=== PATIENT | male | born 1990 | race Caucasian/White ===

== ENCOUNTER 2017-07-14 17:56 | Inpatient (IN) | payer MEDICAID ==
[~2017-07-14] VITALS: Ht 167.6 cm; Wt 70.9 kg
[~2017-07-14 17:56] MED LIST: BISA10R RECTAL; CIPR500T2 PO
[2017-07-14 18:09] VITALS: BP 114/52; PULSE 131; RESP 18; TEMP 102.8; O2SAT 96
[2017-07-14 18:45] VITALS: BP 128/57; PULSE 115; RESP 15; O2SAT 98
[2017-07-14] MEDS ORDERED: SODIUM CHLOR 0.9% 1000 ML INJ 800 ML IV ONE (18:54)
[2017-07-14] MEDS ORDERED: SODIUM CHLOR 0.9% 1000 ML INJ 1,000 ML IV ONE ×2 (18:54→23:30)
[2017-07-14 18:59] LABS: BASOPHIL % 0.2 % (0.0-2.0); EOSINOPHIL % 0.1 % (0.0-4.0); HEMATOCRIT 40.6 % (39.0-51.0); HEMOGLOBIN 14.1 GM/DL (13.0-17.0); LYMPH % 10.3 % (9.0-44.0); LYMPHOCYTE # 1.2 TH/MM3 (1.0-4.8); MEAN CORPUSCULAR HEMOGLOBIN 31.2 PG (27.0-34.0); MEAN CORPUSCULAR HGB CONC 34.7 % (32.0-36.0); MEAN PLATELET VOLUME 8.2 FL (7.0-11.0); MONO % 18.2 % (0.0-8.0); NEUT % 71.2 % (16.0-70.0); PLATELET COUNT 199 TH/MM3 (150-450); RED BLOOD COUNT 4.51 MIL/MM3 (4.50-5.90); RED CELL DISTRIBUTION WIDTH 12.9 % (11.6-17.2); WHITE BLOOD COUNT 11.2 TH/MM3 (4.0-11.0)
[2017-07-14] MEDS ORDERED: ACETAMINOPHEN 325 MG TAB PO ONE (19:00)
--- NOTE | 2017-07-14 19:15 | PD ---
HPI Chief Complaint: Fever Time Seen by Provider: 18:52 Travel History International Travel<30 days: No Contact w/Intl Traveler<30days: No Traveled to known affect area: No History of Present Illness HPI 27-year-old male with PMH of paraplegia secondary to spinal cord injury in early presents to the ED for evaluation of 2 day history of fevers, cloudy urine and headache. Gradual onset. Patient states that he self catheters at home. Endorses "normal" volume of urine output. He denies hematuria. He denies cold or flu symptoms, shortness of breath. Last bowel movement, nonbloody, well-formed today. He states his symptoms are similar to previous episodes of UTI. He states he was last on antibiotics approximately 8 months ago. PFSH Past Medical History Cancer: No Cardiovascular Problems: No Endocrine: No Genitourinary: Yes (hx of uti) Immune Disorder: No Musculoskeletal: Yes (SPINAL CORD INJURY) Psychiatric: No Reproductive: No Respiratory: No Past Surgical History Other Surgery: Yes (BACK SURGEY) Social History Alcohol Use: Yes (OCC) Tobacco Use: No Substance Use: No Allergies-Medications (Allergen,Severity, Reaction): Coded Allergies: No Known Allergies (Verified , 12/12/15) Reported Meds & Prescriptions Reported Meds & Active Scripts Active Bactrim DS (Sulfamethoxazole-Trimethoprim) 800-160 Mg Tab 1 Tab PO BID Ciprofloxacin (Ciprofloxacin HCl) 500 Mg Tab 500 Mg PO BID Bisac-Evac Supp (Bisacodyl) 10 Mg Supp 10 Mg RECTAL EVERY OTHER DAY Review of Systems Except as stated in HPI: all other systems reviewed are Neg Physical Exam Narrative GENERAL: Well-nourished, well-developed male in no acute distress. SKIN: Focused skin assessment warm/dry. HEAD: Normocephalic. EYES: No scleral icterus. No injection or drainage. NECK: Supple, trachea midline. No JVD or lymphadenopathy. CARDIOVASCULAR: Regular rate and rhythm without murmurs, gallops, or rubs. RESPIRATORY: Breath sounds clear and equal bilaterally. No accessory muscle use. GASTROINTESTINAL: Abdomen soft, non-tender, nondistended. Active bowel sounds. MUSCULOSKELETAL: No cyanosis, or edema. Paraplegia, muscle wasting in the lower extremities. BACK: Nontender without obvious deformity. No CVA tenderness. Data Data Last Documented VS Vital Signs Date Time Temp Pulse Resp B/P (MAP) Pulse Ox O2 Delivery O2 Flow Rate FiO2 07/14/17 21:26 99.0 07/14/17 18:45 115 16 98 Room Air Orders Orders Sepsis Workup Initiated (07/14/17 ) Complete Blood Count With Diff (07/14/17 18:11) Comprehensive Metabolic Panel (07/14/17 18:11) Urinalysis - C+S If Indicated (07/14/17 18:11) Lactic Acid Sepsis Protocol (07/14/17 18:11) Blood Culture (07/14/17 18:11) Iv Access Insert/Monitor (07/14/17 18:11) Oxygen Administration (07/14/17 18:11) Oximetry (07/14/17 18:11) Sepsis Workup Initiated (07/14/17 ) Lactic Acid Sepsis Protocol (07/14/17 18:54) Acetaminophen (Tylenol) (07/14/17 19:00) Sodium Chlor 0.9% 1000 Ml Inj (Ns 1000 M (07/14/17 18:54) Sodium Chlor 0.9% 1000 Ml Inj (Ns 1000 M (07/14/17 18:54) Ct Abd/Pel W/O Iv Contrast (07/14/17 19:25) Ceftriaxone Inj (Rocephin Inj) (07/14/17 19:45) Urine Culture (07/14/17 21:45) Ed Discharge Order (07/14/17 22:53) Labs Laboratory Tests Test 07/14/17 18:28 07/14/17 18:30 07/14/17 19:15 07/14/17 21:42 White Blood Count 11.2 TH/MM3 Red Blood Count 4.51 MIL/MM3 Hemoglobin 14.1 GM/DL Hematocrit 40.6 % Mean Corpuscular Volume 90.0 FL Mean Corpuscular Hemoglobin 31.2 PG Mean Corpuscular Hemoglobin Concent 34.7 % Red Cell Distribution Width 12.9 % Platelet Count 199 TH/MM3 Mean Platelet Volume 8.2 FL Neutrophils (%) (Auto) 71.2 % Lymphocytes (%) (Auto) 10.3 % Monocytes (%) (Auto) 18.2 % Eosinophils (%) (Auto) 0.1 % Basophils (%) (Auto) 0.2 % Neutrophils # (Auto) 8.0 TH/MM3 Lymphocytes # (Auto) 1.2 TH/MM3 Monocytes # (Auto) 2.0 TH/MM3 Eosinophils # (Auto) 0.0 TH/MM3 Basophils # (Auto) 0.0 TH/MM3 CBC Comment DIFF FINAL Differential Comment Lactic Acid Level 3.1 mmol/L 2.3 mmol/L 1.0 mmol/L Blood Urea Nitrogen 7 MG/DL Creatinine 0.87 MG/DL Random Glucose 124 MG/DL Total Protein 8.4 GM/DL Albumin 3.4 GM/DL Calcium Level 8.4 MG/DL Alkaline Phosphatase 97 U/L Aspartate Amino Transf (AST/SGOT) 44 U/L Alanine Aminotransferase (ALT/SGPT) 61 U/L Total Bilirubin 1.7 MG/DL Sodium Level 137 MEQ/L Potassium Level 3.6 MEQ/L Chloride Level 101 MEQ/L Carbon Dioxide Level 25.3 MEQ/L Anion Gap 11 MEQ/L Estimat Glomerular Filtration Rate 104 ML/MIN Test 07/14/17 21:45 Urine Color YELLOW Urine Turbidity HAZY Urine pH 6.5 Urine Specific [place] 1.005 Urine Protein NEG mg/dL Urine Glucose (UA) NEG mg/dL Urine Ketones NEG mg/dL Urine Occult Blood SMALL Urine Nitrite NEG Urine Bilirubin NEG Urine Urobilinogen 4.0 MG/DL Urine Leukocyte Esterase LARGE Urine RBC 1 /hpf Urine WBC 104 /hpf Urine Squamous Epithelial Cells <1 /hpf Urine Amorphous Sediment RARE Urine Bacteria FEW /hpf Microscopic Urinalysis Comment CULTURE INDICATED MDM Medical Decision Making Medical Screen Exam Complete: Yes Emergency Medical Condition: Yes Differential Diagnosis UTI versus nephroureterolithiasis versus urosepsis versus other Narrative Course 27-year-old male with PMH of paraplegia secondary to spinal cord injury in early 1999 presents to the ED for evaluation of 2 day history of fevers, cloudy urine and headache. Gradual onset. Patient states that he self catheters at home. He denies hematuria. Endorses "normal" volume of urine. He states his symptoms are similar to previous episodes of UTI. He states he was last on antibiotics approximately 8 months ago. Patient is febrile and tachycardic on presentation. On exam this is a pleasant male in no acute distress. Patient is primarily Upper Sorbian-speaking. All communication was through the [employer] service. Exam is unremarkable. No CVA tenderness. IV was established. Patient was administered 2 L normal saline and 650 of Tylenol. Leukocytosis of 11.2. Hemoglobin 14.1. Initial lactic acid 3.1, 1.0 on recheck. BUN 7, creatinine 0.87. Mild elevation of the bilirubin. UA: Hazy, small occult blood, large leukocyte esterase, 104 WBCs few bacteria. Culture pending. Patient was administered [address] imaging reveals chronic changes of the kidneys and collected system. These are similar to previous CT. I reviewed the patient's record and Dr. Rendon has seen the patient in the past for similar issues. The patient states that he is only catheterizing 3 times a day. I discussed the results of the workup with the patient. Temp normal on recheck. He is provided a 7 day course of Bactrim. He is instructed to self catheter at least every 4 hours, follow with the urologist, return for worsening symptoms. He indicated understanding of the instructions. He is very eager to go home. He is stable and discharged home. Diagnosis Primary Impression: Urinary tract infection Qualified Codes: N30.00 - Acute cystitis without hematuria Referrals: Tanner Silveira MD Additional Instructions: Rest, hydrate. Begin antibiotics today and take them until every pill is gone. Follow-up with the urologist. Return to the ED for worsening symptoms or any urgent or emergent medical condition. Med/Other Pt SpecificInfo: Prescription(s) given Scripts Sulfamethoxazole-Trimethoprim (Bactrim DS) 800-160 Mg Tab 1 TAB PO BID for Infection, #14 TAB 0 Refills Prov: Dominick Garcia MD 07/14/17 Disposition: DISCHARGE HOME Condition: Stable Toyin Cardozo Jul 14, 2017 19:15
[2017-07-14 19:22] LABS: LACTIC ACID SEPSIS PROTOCOL 3.1 mmol/L (0.4-2.0)
[2017-07-14 19:24] LABS: ALBUMIN 3.4 GM/DL (3.4-5.0); AST (GOT) 44 U/L (15-37); BICARBONATE 25.3 MEQ/L (21.0-32.0); BLOOD UREA NITROGEN 7 MG/DL (7-18); CALCIUM 8.4 MG/DL (8.5-10.1); CHLORIDE 101 MEQ/L (98-107); CREATININE 0.87 MG/DL (0.60-1.30); GLOMERULAR FILTRATION RATE 104 ML/MIN (>89); GLUCOSE,RANDOM 124 MG/DL (74-106); SODIUM (NA) 137 MEQ/L (136-145)
[2017-07-14 19:28] LABS: ALKALINE PHOSPHATASE 97 U/L (45-117); ALT (GPT) 61 U/L (12-78); TOTAL BILIRUBIN ADULT 1.7 MG/DL (0.2-1.0); TOTAL PROTEIN 8.4 GM/DL (6.4-8.2)
[2017-07-14] MEDS ORDERED: cefTRIAXone INJ 1,000 MG in SODIUM CHLORIDE 0.9% INJ 100 ML IV ONE (19:45)
[2017-07-14 20:12] LABS: LACTIC ACID SEPSIS PROTOCOL 2.3 mmol/L (0.4-2.0)
--- NOTE | 2017-07-14 21:00 | RADRPT ---
EXAM DATE/TIME: 07/14/2017 20:04 [facility] COMPARISON: CT ABDOMEN & PELVIS W CONTRAST, March 31, 2016, 17:42. INDICATIONS : Dysuria and fever. ORAL CONTRAST: No oral contrast ingested. RADIATION DOSE: 8.70 CTDIvol (mGy) MEDICAL HISTORY : UTI's. neurogenic bladder. parapalegic. SURGICAL HISTORY : IVC Filter placement. Fusion, thoracic. ENCOUNTER: Initial ACUITY: 2 days PAIN SCALE: 0/10 LOCATION: Abdomen. TECHNIQUE: Volumetric scanning of the abdomen and pelvis was performed. Using automated exposure control and ad justment of the mA and/or kV according to patient size, radiation dose was kept as low as reasonably achievable to obtain optimal diagnostic quality images. DICOM format image data is available electro nically for review and comparison. FINDINGS: LOWER LUNGS: The visualized lower lungs are clear. LIVER: Homogeneous density without lesion. There is no dilation of the biliary tree. No calcified gallston es. SPLEEN: Normal size without lesion. PANCREAS: Within normal limits. KIDNEYS: There is moderate to severe dilatation of the renal collecting systems and ureters bilaterally being worse on the left. There is left perinephric stranding. No renal stones are seen. No ureteral stones are seen. ADRENAL GLANDS: Within normal limits. VASCULAR: There is no aortic aneurysm. There is an IVC filter. BOWEL/MESENTERY: The stomach, small bowel, and colon demonstrate no acute abnormality. There is no free intraperitone al air or fluid. ABDOMINAL WALL: Within normal limits. RETROPERITONEUM: There is no lymphadenopathy. BLADDER: The bladder is moderately distended. The bladder wall diffusely thickened.. there appears to be some dilatation of the prostatic urethra. This configuration was present on the prior exam. REPRODUCTIVE: Within normal limits. INGUINAL: There is no lymphadenopathy or hernia. MUSCULOSKELETAL: Within normal limits for patient age. CONCLUSION: 1. Dilatation of the renal collecting systems and ureters bilaterally. The bladder is moderately dist ended. There appears to be distention of the prostatic urethra. Obstruction at this level needs to be suspected. Stenosis, stricture, posterior urethral valves, or neurogenic bladder could all be suspec zaida. Urology consultation would be recommended. 2. Diffuse thickening of the bladder. This may be secondary to chronic overdistention of the urinary bladder with the bladder only be mildly distended at the time of the CT examination. Again, urology c onsultation is recommended. 3. IVC filter. Naeem Kruger MD on July 14, 2017 at 20:52 Board Certified Radiologist. This report was verified electronically.
[2017-07-14 21:26] VITALS: TEMP 99
[2017-07-14 22:25] LABS: AMORPHOUS SEDIMENT, URINE RARE; BACTERIA, URINE FEW /hpf; BILIRUBIN, URINE NEG (NEG); BLOOD, URINE SMALL (NEG); GLUCOSE,URINE NEG (NEG); KETONE, URINE NEG (NEG); NITRITE,URINE NEG (NEG); PH, URINE 6.5 (5.0-8.5); SQUAMOUS EPITHELIAL CELL URINE <1 /hpf (0-5); URINE COLOR YELLOW (YELLW/STRAW); URINE LEUKOCYTE ESTERASE LARGE (NEG)
[2017-07-14] MEDS ORDERED: BACT800T5 PO (22:53)
[2017-07-14 23:24] VITALS: BP 113/69; PULSE 125; RESP 18; O2SAT 97
[2017-07-15] VITALS (12 sets, daily range): BP systolic 100–130; BP diastolic 55–69; PULSE 87–122; RESP 17–23; TEMP 99.1–103.2; O2SAT 97–100
[2017-07-15] MEDS ORDERED: ACETAMINOPHEN 325 MG TAB PO ONE (00:30)
[2017-07-15] MEDS ORDERED: NALOXONE HCL 0.4 MG/ML AMP IV PUSH PRN (04:30)
[2017-07-15] MEDS ORDERED: SODIUM CHLORIDE 0.9% FLUSH 10 ML FLUSH IV FLUSH PRN (04:30)
[2017-07-15 04:43] LABS: HEMATOCRIT 37.9 % (39.0-51.0); HEMOGLOBIN 13.6 GM/DL (13.0-17.0); MEAN CELL VOLUME 90.8 FL (80.0-100.0); MEAN CORPUSCULAR HEMOGLOBIN 32.7 PG (27.0-34.0); MEAN PLATELET VOLUME 8.2 FL (7.0-11.0); PLATELET COUNT 202 TH/MM3 (150-450); RED BLOOD COUNT 4.18 MIL/MM3 (4.50-5.90); RED CELL DISTRIBUTION WIDTH 12.9 % (11.6-17.2); WHITE BLOOD COUNT 8.9 TH/MM3 (4.0-11.0)
[2017-07-15 05:15] LABS: BANDS 14 % (0-6); LYMPHOCYTES 19 % (9-44); METAMYELOCYTES 1 % (0-1); MONOCYTES 13 % (0-8); NEUTROPHIL # MANUAL DIFF 6.1 TH/MM3 (1.8-7.7); POLYS (SEG NEUTROPHILS) 53 % (16-70)
[2017-07-15 05:16] LABS: TOXIC VACUOLATION PRESENT (NONE SEEN)
[2017-07-15] MEDS: ONDANSETRON HCL 4 MG/2 ML VIAL IVP PRN ×2 (05:35→16:36)
[2017-07-15] MEDS: ACETAMINOPHEN 325 MG TAB PO PRN ×2 (05:36→16:33)
[2017-07-15] MEDS: HEPARIN SODIUM - SQ 10,000 UNITS/ML VIAL SQ SCH ×3 (05:37→20:08)
[2017-07-15] MEDS: SODIUM CHLOR 0.9% 1000 ML INJ 1,000 ML IV SCH ×2 (05:37→14:29)
[2017-07-15] MEDS: SODIUM CHLORIDE 0.9% FLUSH 10 ML FLUSH IV FLUSH SCH ×2 (08:07→20:07)
--- NOTE | 2017-07-15 09:45 | HHI.HP ---
[facility] Admission Diagnosis uti fever tachycardia Diagnoses: Chief Complaint: Fever Travel History International Travel<30 Days: No Contact w/Intl Traveler <30 Da: No Traveled to Known Affected Are: No Sepsis Criteria SIRS Criteria (2 or more): Temp > 100.9 or < 96.8, WBC > 10019, < 4000 or > 10 % bands Sepsis Criteria (SIRS+source): Infect source susp/known Severe Sepsis (+one): Lactate >2 Criteria Outcome: Meets severe sepsis criteria History of Present Illness This is a 27-year-old male with a history of paraplegia and neurogenic bladder dysfunction secondary to thoracic spinal cord injury. He presents to the emergency department complaining of intermittent fever, chills and cloudy urine for the past 2 days. He also reports of nausea, vomiting 1 and headache with fever in the emergency department. At this time, he has no complaints. Patient reports that he has been doing self catheterization. Last bout of UTI was 8 months ago. All other systems reviewed negative Review of Systems Except as stated in HPI: all other systems reviewed are Neg Past Family Social History Past Medical History As previously mentioned Past Surgical History Back surgery from a fall Reported Medications Non- Allergies: Coded Allergies: No Known Allergies (Verified , 12/12/15) Family History Heart disease Social History Occasional alcohol use. Does not smoke or use illicit drugs. Lives with his girlfriend Physical Exam Vital Signs Vital Signs Date Time Temp Pulse Resp B/P (MAP) Pulse Ox O2 Delivery O2 Flow Rate FiO2 07/15/17 08:04 99.8 98 18 120/56 (77) 99 07/15/17 05:38 103.1 122 20 115/59 (77) 99 Room Air 07/15/17 04:35 102.3 114 18 130/61 (84) 97 07/15/17 02:37 100.6 07/15/17 00:20 103.2 07/14/17 23:24 125 18 113/69 (84) 97 Room Air 07/14/17 21:26 99.0 07/14/17 18:45 115 16 98 Room Air 07/14/17 18:45 115 15 128/57 (80) 98 Room Air 07/14/17 18:09 102.8 131 18 114/52 (72) 96 Physical Exam GENERAL: This is a well-nourished, well-developed patient, in no apparent distress. SKIN: No rashes, ecchymoses or lesions. Cool and dry. HEAD: Atraumatic. Normocephalic. No temporal or scalp tenderness. EYES: Pupils equal round and reactive. Extraocular motions intact. No scleral icterus. No injection or drainage. ENT: Nose without bleeding, purulent drainage or septal hematoma. Throat without erythema, tonsillar hypertrophy or exudate. Uvula midline. Airway patent. NECK: Trachea midline. No JVD or lymphadenopathy. Supple, nontender, no meningeal signs. CARDIOVASCULAR: Regular rate and rhythm without murmurs, gallops, or rubs. RESPIRATORY: Clear to auscultation. Breath sounds equal bilaterally. No wheezes , rales, or rhonchi. GASTROINTESTINAL: Abdomen soft, non-tender, nondistended. No hepato-splenomegaly , or palpable masses. No guarding. MUSCULOSKELETAL: Extremities without clubbing, cyanosis, or edema. Paraplegic with no sensation from the chest down and muscle wasting in the lower extremities NEUROLOGICAL: Awake and alert. Cranial nerves II through XII intact. Normal speech. Laboratory Laboratory Tests Test 07/14/17 18:28 07/14/17 18:30 07/14/17 19:15 07/14/17 21:42 White Blood Count 11.2 Red Blood Count 4.51 Hemoglobin 14.1 Hematocrit 40.6 Mean Corpuscular Volume 90.0 Mean Corpuscular Hemoglobin 31.2 Mean Corpuscular Hemoglobin Concent 34.7 Red Cell Distribution Width 12.9 Platelet Count 199 Mean Platelet Volume 8.2 Neutrophils (%) (Auto) 71.2 Lymphocytes (%) (Auto) 10.3 Monocytes (%) (Auto) 18.2 Eosinophils (%) (Auto) 0.1 Basophils (%) (Auto) 0.2 Neutrophils # (Auto) 8.0 Lymphocytes # (Auto) 1.2 Monocytes # (Auto) 2.0 Eosinophils # (Auto) 0.0 Basophils # (Auto) 0.0 CBC Comment DIFF FINAL Differential Comment Lactic Acid Level 3.1 2.3 1.0 Blood Urea Nitrogen 7 Creatinine 0.87 Random Glucose 124 Total Protein 8.4 Albumin 3.4 Calcium Level 8.4 Alkaline Phosphatase 97 Aspartate Amino Transf (AST/SGOT) 44 Alanine Aminotransferase (ALT/SGPT) 61 Total Bilirubin 1.7 Sodium Level 137 Potassium Level 3.6 Chloride Level 101 Carbon Dioxide Level 25.3 Anion Gap 11 Estimat Glomerular Filtration Rate 104 Test 07/14/17 21:45 07/15/17 04:20 Urine Color YELLOW Urine Turbidity HAZY Urine pH 6.5 Urine Specific [place] 1.005 Urine Protein NEG Urine Glucose (UA) NEG Urine Ketones NEG Urine Occult Blood SMALL Urine Nitrite NEG Urine Bilirubin NEG Urine Urobilinogen 4.0 Urine Leukocyte Esterase LARGE Urine RBC 1 Urine WBC 104 Urine Squamous Epithelial Cells <1 Urine Amorphous Sediment RARE Urine Bacteria FEW Microscopic Urinalysis Comment CULTURE INDICATED White Blood Count 8.9 Red Blood Count 4.18 Hemoglobin 13.6 Hematocrit 37.9 Mean Corpuscular Volume 90.8 Mean Corpuscular Hemoglobin 32.7 Mean Corpuscular Hemoglobin Concent 36.0 Red Cell Distribution Width 12.9 Platelet Count 202 Mean Platelet Volume 8.2 CBC Comment AUTO DIFF Differential Total Cells Counted 100 Neutrophils % (Manual) 53 Band Neutrophils % 14 Lymphocytes % 19 Monocytes % 13 Neutrophils # (Manual) 6.1 Metamyelocytes 1 Differential Comment FINAL DIFF MANUAL Toxic Vacuolation PRESENT Platelet Estimate NORMAL Platelet Morphology Comment NORMAL Red Cell Morphology Comment NORMAL Date/Time Source Procedure Growth Status 07/15/17 04:39 Blood Peripheral Aerobic Blood Culture Pending Received 07/15/17 04:39 Blood Peripheral Anaerobic Blood Culture Pending Received 07/14/17 21:45 Urine Clean Catch Urine Culture Pending Received Result Diagram: 07/15/17 0420 07/14/17 1830 Imaging Last Impressions Abdomen/Pelvis CT 07/14/[id number] Signed Impressions: Service Date/Time: Friday, July 14, 2017 20:04 - CONCLUSION: 1. Dilatation of the renal collecting systems and ureters bilaterally. The bladder is moderately distended. There appears to be distention of the prostatic urethra. Obstruction at this level needs to be suspected. Stenosis, stricture, posterior urethral valves, or neurogenic bladder could all be suspected. Urology consultation would be recommended. 2. Diffuse thickening of the bladder. This may be secondary to chronic overdistention of the urinary bladder with the bladder only be mildly distended at the time of the CT examination. Again, urology consultation is recommended. 3. IVC filter. Naeem Kruger MD Caprini VTE Risk Assessment Caprini VTE Risk Assessment: Mod/High Risk (score >= 2) Caprini Risk Assessment Model Point Value = 1 Point Value = 2 Point Value = 3 Point Value = 5 Age 41-60 Minor surgery BMI > 25 kg/m2 Swollen legs Varicose veins or History of unexplained or recurrent spontaneous Oral contraceptives or hormone replacement Sepsis (< 1 month) Serious lung disease, including pneumonia (< 1 month) Abnormal pulmonary function Acute myocardial infarction Congestive heart failure (< 1 month) History of inflammatory bowel disease Medical patient at bed rest Age 61-74 Arthroscopic surgery Major open surgery (> 45 min) Laparoscopic surgery (> 45 min) Malignancy Confined to bed (> 72 hours) Immobilizing plaster cast Central venous access Age >= 75 History of VTE Family history of VTE Factor V Leiden Prothrombin [id number] Lupus anticoagulant Anticardiolipin antibodies Elevated serum homocysteine Heparin-induced thrombocytopenia Other congenital or acquired thrombophilia Stroke (< 1 month) Elective arthroplasty Hip, pelvis, or leg fracture Acute spinal cord injury (< 1 month) Prophylaxis Regimen Total Risk Factor Score Risk Level Prophylaxis Regimen 0-1 Low Early ambulation 2 Moderate Order ONE of the following: *Sequential Compression Device (SCD) *Heparin 5000 units SQ BID 3-4 Higher Order ONE of the following medications: *Heparin 5000 units SQ TID *Enoxaparin/Lovenox 40 mg SQ daily (WT < 150 kg, CrCl > 30 mL/min) *Enoxaparin/Lovenox 30 mg SQ daily (WT < 150 kg, CrCl > 10-29 mL/min) *Enoxaparin/Lovenox 30 mg SQ BID (WT < 150 kg, CrCl > 30 mL/min) AND/OR *Sequential Compression Device (SCD) 5 or more Highest Order ONE of the following medications: *Heparin 5000 units SQ TID (Preferred with Epidurals) *Enoxaparin/Lovenox 40 mg SQ daily (WT < 150 kg, CrCl > 30 mL/min) *Enoxaparin/Lovenox 30 mg SQ daily (WT < 150 kg, CrCl > 10-29 mL/min) *Enoxaparin/Lovenox 30 mg SQ BID (WT < 150 kg, CrCl > 30 mL/min) AND *Sequential Compression Device (SCD) Assessment and Plan Problem List: (1) Urinary tract infection ICD Code: N39.0 - Urinary tract infection, site not specified Status: Acute Assessment and Plan This is a 27-year-old male with a history of paraplegia and neurogenic bladder dysfunction secondary to thoracic spinal cord injury. He presents to the emergency department complaining of intermittent fever, chills and cloudy urine for the past 2 days. He also reports of nausea, vomiting 1 and headache with fever in the emergency department. Complicated urinary tract infection in a patient with a history of neurogenic bladder dysfunction 2/2 SCI. He meets criteria for severe sepsis. Continue IV hydration, IV Rocephin and follow-up cultures. Patient with abnormal abdominal and pelvic CT showing dilatation of the renal collecting systems and ureters bilaterally with moderately distended urinary bladder and wall thickening. Possible distention of the prostatic urethra. Will insert Jones catheter and consult urology for further evaluation Mild AST elevation likely secondary to sepsis. Will monitor DVT prophylaxis with SCD, subcu heparin. Patient has an IVC filter Discussed Condition With Patient and girlfriend Problem Qualifiers (1) Urinary tract infection: Qualified Codes: N30.00 - Acute cystitis without hematuria Telly Foy MD Jul 15, 2017 09:45
--- NOTE | 2017-07-15 14:33 | MB ---
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 He has a neurogenic bladder and performs clean intermittent catheterization q. 8 hours. Over the last few days he has been complaining of intermittent fever with chills and cloudy urine. He also notes some nausea and vomiting with headache, fever. The patient states that he was admitted approximately 1 year ago with similar symptoms of a UTI. A CT scan was performed in the Emergency Room, which demonstrated dilatation of the renal collecting system and ureters bilaterally with a moderately distended bladder. A Jones catheter was placed by the nurse in the emergency room and she received 500 ccs upon placement. He also states that he has incontinence in between catheterizations. He denies any history of stones. PAST MEDICAL HISTORY: His medical history is noted for spinal cord injury with a neurogenic bladder. PAST SURGICAL HISTORY: Noted for back surgery after his initial injury. MEDICATIONS: He is not taking any medications. ALLERGIES: NO DRUG ALLERGIES. FAMILY HISTORY: Negative for heart disease. SOCIAL HISTORY: Occasional alcohol, but does not smoke or use any illicit drugs. He currently lives with his girlfriend. REVIEW OF SYSTEMS: Denies chest pain, shortness of breath. Denies abdominal pain. Notes fever, chills, cloudy urine is noted. Notes gait limitations due to spinal cord injury. Denies bleeding disorders. Denies psychiatric problems. Remaining review of systems were reviewed and were negative. PHYSICAL EXAMINATION: VITAL SIGNS: On presentation temperature 99.8, heart rate is 93, respiratory rate 23, 111/57, 98% on room air. GENERAL: Well-developed, well-nourished, 27-year-old male in no acute distress. HEENT: Normocephalic, atraumatic. Pupils equal, round, reactive to light. Extraocular movements intact. NECK: Supple. HEART: Regular rate and rhythm. LUNGS: Clear. ABDOMEN: Soft, nontender, nondistended. : Normal phallus. Testes are descended. Jones catheter in place. Urine is presently clear. EXTREMITIES: Show no evidence of cyanosis, clubbing, or edema. NEUROLOGIC: Cranial nerves 2-12 are intact. SKIN: There are no lesions identified. LABORATORY DATA: White count 8.9, hemoglobin 13.6, hematocrit 37.9, platelet count of 202. Sodium 137, potassium 3.6, chloride 101, CO2 25.3, BUN is 7, creatinine 0.87, glucose of 124. Urinalysis: Large leukocyte esterase, 104 white cells, 1 red cell. Again, imaging studies shows some dilatation of the renal collecting system and ureters bilaterally. The bladder is moderately distended. There appeared to be some distention of the prostatic urethra. Bladder wall thickening was also noted. ASSESSMENT AND PLAN: A 27-year-old male with a history of a neurogenic bladder after a fall sustaining back injury. The patient is currently on clean intermittent catheterization q. 8 hours at home and now presents with sepsis. Recommend maintain Jones catheter with drainage for now. Continue IV fluids and IV antibiotics. Once infection is cleared, will then resume clean intermittent catheterization, but would increase frequency to q. 6 hours. The patient will then followup in the office to undergo possible urodynamic study and cystoscopy at that time. Thank you for the consult and allowing me to participate in the care of this patient. DO MADELIN Santos/ANTHONY , 02:09 PM , 02:32 PM
--- NOTE | 2017-07-15 14:50 | EKG ---
Date Performed: 07/15/2017 Time Performed: 04:51:48 PTAGE: 27 years EKG: Normal Sinus rhythm Minor nonspecific t wave abnormality new since the prior tracing PREVIOUS TRACING : 01/06/2011 13.33 DOCTOR: Michael Covarrubias Interpretating Date/Time 07/15/2017 14:49:00
--- NOTE | 2017-07-15 15:57 | HHI.DCPOC ---
Discharge Care Plan Diagnosis: (1) Urinary tract infection Your Health Problems Are: Difficulty with ADL Exercise Tolerance Goals to Promote Your Health * To prevent worsening of your condition and complications * To maintain your health at the optimal level Directions to Meet Your Goals Take your medications as prescribed Follow your dietary instruction Follow activity as directed Keep your appointments as scheduled Take your immunizations and boosters as scheduled If your symptoms worsen call your PCP, if no PCP go to Urgent Care Center or Emergency Room Smoking is Dangerous to Your Health. Avoid second hand smoke Call the 24-hour hour crisis hotline for domestic abuse at Telly Foy MD Jul 15, 2017 15:57
[2017-07-15] MEDS: cefTRIAXone INJ 1,000 MG in SODIUM CHLORIDE 0.9% INJ 100 ML IV SCH (20:07)
[2017-07-16] VITALS (9 sets, daily range): BP systolic 98–117; BP diastolic 50–64; PULSE 71–98; RESP 18; TEMP 97.8–101.8; O2SAT 98–100
[2017-07-16] MEDS: ACETAMINOPHEN 325 MG TAB PO PRN (02:35)
[2017-07-16] MEDS: HEPARIN SODIUM - SQ 10,000 UNITS/ML VIAL SQ SCH ×3 (06:00→22:06)
[2017-07-16] MEDS: SODIUM CHLORIDE 0.9% FLUSH 10 ML FLUSH IV FLUSH SCH ×2 (09:27→21:00)
[2017-07-16] MEDS: ONDANSETRON HCL 4 MG/2 ML VIAL IVP PRN (09:29)
--- NOTE | 2017-07-16 14:32 | HHI.PR ---
Subjective Remarks Follow-up UTI. T-max of 101 at 3:00 in the morning. Patient has no complaints he is doing okay agrees to stay another day discussed with and nursing Objective Vitals Vital Signs Date Time Temp Pulse Resp B/P (MAP) Pulse Ox O2 Delivery O2 Flow Rate FiO2 07/16/17 12:00 98.2 98 18 109/52 (71) 98 07/16/17 08:00 98.3 92 18 115/55 (75) 98 07/16/17 08:00 90 07/16/17 07:36 Room Air 07/16/17 04:00 98.1 71 18 98/54 (69) 99 07/16/17 04:00 Room Air 07/16/17 03:39 93 07/16/17 02:35 101.8 07/16/17 00:00 Room Air 07/16/17 00:00 98.3 98 18 103/63 (76) 100 07/15/17 23:46 87 07/15/17 20:00 Room Air 07/15/17 20:00 99.6 101 18 100/55 (70) 98 07/15/17 19:42 106 07/15/17 16:09 102.8 99 17 119/69 (86) 98 07/15/17 16:00 100 I/O 07/15/17 07/15/17 07/15/17 07/16/17 07/16/17 07/16/17 06:59 14:59 22:59 06:59 14:59 22:59 Intake Total 2900 ml 1000 ml 820 ml 1754 ml Output Total 2150 ml 2000 ml 450 ml Balance 2900 ml 1000 ml -1330 ml -246 ml -450 ml Intake Oral 720 ml 880 ml IV Total 2900 ml 1000 ml 100 ml 874 ml Output Urine Total 2150 ml 2000 ml 450 ml # Bowel Movements 0 0 Result Diagram: 07/15/17 0420 07/14/17 183 Imaging Last Impressions Abdomen/Pelvis CT 07/14/171924 Signed Impressions: Service Date/Time: Friday, July 14, 2017 20:04 - CONCLUSION: 1. Dilatation of the renal collecting systems and ureters bilaterally. The bladder is moderately distended. There appears to be distention of the prostatic urethra. Obstruction at this level needs to be suspected. Stenosis, stricture, posterior urethral valves, or neurogenic bladder could all be suspected. Urology consultation would be recommended. 2. Diffuse thickening of the bladder. This may be secondary to chronic overdistention of the urinary bladder with the bladder only be mildly distended at the time of the CT examination. Again, urology consultation is recommended. 3. IVC filter. Naeem Kruger MD Objective Remarks GENERAL: This is a well-nourished, well-developed patient, in no apparent distress. SKIN: No rashes, ecchymoses or lesions. Cool and dry. CARDIOVASCULAR: Regular rate and rhythm without murmurs, gallops, or rubs. RESPIRATORY: Clear to auscultation. Breath sounds equal bilaterally. No wheezes , rales, or rhonchi. GASTROINTESTINAL: Abdomen soft, non-tender, nondistended. No guarding. MUSCULOSKELETAL: Extremities without clubbing, cyanosis, or edema. Paraplegic with no sensation from the chest down and muscle wasting in the lower extremities NEUROLOGICAL: Awake and alert. Cranial nerves II through XII intact. Normal speech. Procedures none A/P Problem List: (1) Urinary tract infection ICD Code: N39.0 - Urinary tract infection, site not specified Status: Acute Assessment and Plan This is a 27-year-old male with a history of paraplegia and neurogenic bladder dysfunction secondary to thoracic spinal cord injury. He presents to the emergency department complaining of intermittent fever, chills and cloudy urine for the past 2 days. He also reports of nausea, vomiting 1 and headache with fever in the emergency department. Complicated urinary tract infection in a patient with a history of neurogenic bladder dysfunction 2/2 SCI. He meets criteria for severe sepsis. Continues to be febrile. Continue IV hydration, IV Rocephin and follow-up cultures. Patient with abnormal abdominal and pelvic CT showing dilatation of the renal collecting systems and ureters bilaterally with moderately distended urinary bladder and wall thickening. Possible distention of the prostatic urethra. Continue Jones catheter and consulted urology discussed with Dr. Mott outpatient follow-up for urodynamic studies Mild AST elevation likely secondary to sepsis. Will monitor DVT prophylaxis with SCD, subcu heparin. Patient has an IVC filter Discharge Planning Possible discharge in the morning Problem Qualifiers (1) Urinary tract infection: Qualified Codes: N30.00 - Acute cystitis without hematuria Telly Foy MD Jul 16, 2017 14:32
[2017-07-16] MEDS ORDERED: CEFU1TAB18 PO (17:56)
[2017-07-16] MEDS: cefTRIAXone INJ 1,000 MG in SODIUM CHLORIDE 0.9% INJ 100 ML IV SCH (22:06)
[2017-07-17] VITALS: BP 105/57; PULSE 81; RESP 18; TEMP 98.1; O2SAT 97
[2017-07-17 04:00] VITALS: PULSE 66
[2017-07-17] MEDS: HEPARIN SODIUM - SQ 10,000 UNITS/ML VIAL SQ SCH (05:57)
[2017-07-17 07:53] VITALS: PULSE 71
[2017-07-17 08:00] VITALS: BP 101/58; PULSE 76; RESP 19; TEMP 98; O2SAT 99
[2017-07-17] MEDS: SODIUM CHLORIDE 0.9% FLUSH 10 ML FLUSH IV FLUSH SCH (09:44)
[2017-07-17 12:00] VITALS: BP 118/59; PULSE 77; RESP 19; TEMP 98.1; O2SAT 97
[2017-07-17 12:16] VITALS: PULSE 78
--- NOTE | 2017-07-17 13:30 | HHI.DS ---
Discharge Summary Admission Date Jul 15, 2017 at 04:08 Discharge Date: Jul 17, 2017 Admitting Diagnosis uti fever tachycardia (1) Urinary tract infection ICD Code: N39.0 - Urinary tract infection, site not specified Diagnosis: Principal Status: Acute Procedures none Brief History - From Admission This is a 27-year-old male with a history of paraplegia and neurogenic bladder dysfunction secondary to thoracic spinal cord injury. He presents to the emergency department complaining of intermittent fever, chills and cloudy urine for the past 2 days. He also reports of nausea, vomiting 1 and headache with fever in the emergency department. At this time, he has no complaints. Patient reports that he has been doing self catheterization. Last bout of UTI was 8 months ago. All other systems reviewed negative CBC/BMP: 07/15/17 0420 07/14/17 1830 Significant Findings Laboratory Tests Test 07/14/17 18:28 07/14/17 18:30 07/14/17 19:15 07/14/17 21:42 White Blood Count 11.2 TH/MM3 (4.0-11.0) Neutrophils (%) (Auto) 71.2 % (16.0-70.0) Monocytes (%) (Auto) 18.2 % (0.0-8.0) Neutrophils # (Auto) 8.0 TH/MM3 (1.8-7.7) Monocytes # (Auto) 2.0 TH/MM3 (0-0.9) Lactic Acid Level 3.1 mmol/L (0.4-2.0) 2.3 mmol/L (0.4-2.0) Random Glucose 124 MG/DL (74-106) Total Protein 8.4 GM/DL (6.4-8.2) Calcium Level 8.4 MG/DL (8.5-10.1) Aspartate Amino Transf (AST/SGOT) 44 U/L (15-37) Total Bilirubin 1.7 MG/DL (0.2-1.0) Test 07/14/17 21:45 07/15/17 04:20 Urine Turbidity HAZY (CLEAR) Urine Occult Blood SMALL (NEG) Urine Urobilinogen 4.0 MG/DL (LESS THAN Urine Leukocyte Esterase LARGE (NEG) Urine WBC 104 /hpf (0-5) Urine Bacteria FEW /hpf (NONE) Red Blood Count 4.18 MIL/MM3 (4.50-5.90) Hematocrit 37.9 % (39.0-51.0) Band Neutrophils % 14 % (0-6) Monocytes % 13 % (0-8) Toxic Vacuolation PRESENT (NONE SEEN) Imaging Last Impressions Abdomen/Pelvis CT 07/14/171924 Signed Impressions: Service Date/Time: Friday, July 14, 2017 20:04 - CONCLUSION: 1. Dilatation of the renal collecting systems and ureters bilaterally. The bladder is moderately distended. There appears to be distention of the prostatic urethra. Obstruction at this level needs to be suspected. Stenosis, stricture, posterior urethral valves, or neurogenic bladder could all be suspected. Urology consultation would be recommended. 2. Diffuse thickening of the bladder. This may be secondary to chronic overdistention of the urinary bladder with the bladder only be mildly distended at the time of the CT examination. Again, urology consultation is recommended. 3. IVC filter. Naeem Kruger MD PE at Discharge GENERAL: This is a well-nourished, well-developed patient, in no apparent distress. SKIN: No rashes, ecchymoses or lesions. Cool and dry. CARDIOVASCULAR: Regular rate and rhythm without murmurs, gallops, or rubs. RESPIRATORY: Clear to auscultation. Breath sounds equal bilaterally. No wheezes , rales, or rhonchi. GASTROINTESTINAL: Abdomen soft, non-tender, nondistended. No guarding. MUSCULOSKELETAL: Extremities without clubbing, cyanosis, or edema. Paraplegic with no sensation from the chest down and muscle wasting in the lower extremities NEUROLOGICAL: Awake and alert. Cranial nerves II through XII intact. Normal speech. Hospital Course This is a 27-year-old male with a history of paraplegia and neurogenic bladder dysfunction secondary to thoracic spinal cord injury. He presents to the emergency department complaining of intermittent fever, chills and cloudy urine for the past 2 days. He also reports of nausea, vomiting 1 and headache with fever in the emergency department. Complicated urinary tract infection in a patient with a history of neurogenic bladder dysfunction 2/2 SCI. He meets criteria for severe sepsis. Stable with negative cultures. Upper body for over 24 hours. Continue antibiotics switch to Ceftin discontinue IV Rocephin Patient with abnormal abdominal and pelvic CT showing dilatation of the renal collecting systems and ureters bilaterally with moderately distended urinary bladder and wall thickening. Possible distention of the prostatic urethra. Continue Jones catheter and consulted urology discussed with Dr. Mott outpatient follow-up for urodynamic studies Mild AST elevation likely secondary to sepsis. Will monitor DVT prophylaxis with SCD, subcu heparin. Patient has an IVC filter Pt Condition on Discharge: Stable Discharge Disposition: Discharge Home Discharge Time: > 30 minutes Discharge Instructions DIET: Follow Instructions for: As Tolerated, No Restrictions Activities you can perform: Regular-No Restrictions Activities to Avoid: Driving Follow up Referrals: Appointment for Follow Up @ DR. MOTT PCP Follow-up - 1 Week PCP Follow-up @ [facility] - 1 Week with mandatory follow up New Medications: Cefuroxime (Ceftin) 250 Mg Tab 250 MG PO BID for Infection, #22 TAB Telly Foy MD Jul 17, 2017 13:29
== END 2017-07-17 14:30 | disposition home or self-care (01) | DRG 872 ==
LOC: NEPE 17:56 → NEDA 07-15 04:08 → N04A 07-15 12:26
PROVIDERS: ADMIT Internal Medicine; ATTEND Internal Medicine
PROC: 0T9B70Z Drainage of Bladder with Drainage Device, Via Natural or Artificial Opening (ICD-10-PCS; principal; 2017-07-15)
DX: A41.9 Sepsis, unspecified organism (principal); G82.20 Paraplegia, unspecified; N39.0 Urinary tract infection, site not specified; S24.109S Unspecified injury at unspecified level of thoracic spinal cord, sequela; N31.9 Neuromuscular dysfunction of bladder, unspecified; R65.20 Severe sepsis without septic shock
CPT/HCPCS: 74176; 80053; 81001; 83605; 85007; 85025; 85027; 87040; 87086; 93005; 96361; 96365; J0696; J1644; J2405; J7030

== ENCOUNTER 2018-03-11 17:20 | Inpatient (IN) ==
--- NOTE | 2018-03-11 17:46 | ED ---
HPI General Chief Complaint: Fever Stated Complaint: fever Time Seen by Provider: 03/11/18 17:43 Source: patient and family Mode of arrival: ambulatory Limitations: no limitations History of Present Illness HPI Narrative: 27-year-old male patient who is paraplegic presents to the ER today because he has had several days history of headaches, nausea, vomiting, and fevers. He apparently has had similar episodes with his UTIs. He self caths and gets frequent UTIs. Modifying Factors: None Associated Signs & Symptoms: Nausea, vomiting, fevers, headaches Risk Factors: Paraplegic, self caths, frequent UTIs Related Data Home Medications Medication Instructions Recorded Confirmed No Known Home Medications 03/11/18 03/11/18 Previous Rx's Medication Instructions Recorded ciprofloxacin HCl [Cipro] 500 mg PO BID 42 Days #84 tab 03/14/18 Allergies Allergy/AdvReac Type Severity Reaction Status Date / Time No Known Allergies Allergy Verified 03/11/18 17:37 Review of Systems ROS: all other systems reviewed are negative PMFSH History History Provided By: Patient Medical History Medical History Paraplegia (Acute) Family History Family History Other Diabetes mellitus Social History Social History Substance History: No History of Abuse Second Hand Smoke Exposure: No Smoking Status: Never smoker How Often Do You Have a Drink Containing Alcohol: Monthly or less Recent Travel in [facility] within the Last 8 Weeks: No Recent Out of Country Travel within the Last 8 Weeks: No Exam Narrative Exam Narrative: GENERAL: Paraplegic young male patient currently and mild distress. Awake and oriented x3. SKIN: Focused skin assessment warm/dry. HEAD: Atraumatic. Normocephalic. EYES: Pupils equal and round. No scleral icterus. No injection or drainage. ENT: No nasal bleeding or discharge. Mucous membranes pink and moist. NECK: Trachea midline. No JVD. CARDIOVASCULAR: Regular rate and rhythm. No murmur appreciated. RESPIRATORY: No accessory muscle use. Clear to auscultation. Breath sounds equal bilaterally. GASTROINTESTINAL: Abdomen soft, non-tender, nondistended. Hepatic and splenic margins not palpable. MUSCULOSKELETAL: No obvious deformities. No clubbing. No cyanosis. No edema. NEUROLOGICAL: Awake and alert. Paraplegic, lower body paralysis. Normal speech. PSYCHIATRIC: Appropriate mood and affect; insight and judgment normal. Course Initial Documented Vital Signs Temperature 100.1 F H 03/11/18 17:35 Pulse Rate 118 H 03/11/18 17:35 Respiratory Rate 20 03/11/18 17:35 Blood Pressure 114/58 L 03/11/18 17:35 Pulse Oximetry 97 03/11/18 17:35 Last Documented Vital Signs Temperature 98.7 F 03/14/18 12:00 Pulse Rate 72 03/14/18 12:00 Respiratory Rate 18 03/14/18 12:00 Blood Pressure 106/59 L 03/14/18 12:00 Pulse Oximetry 98 03/14/18 12:00 Sign Out Sign Out Data: Patient Sign Out occurred on 03/11/18 at 19:17. Patient's care was discussed, and care was transferred from Carlita Trejo MD to Indu Ahumada. Sign Out Comment: Patient signed out to oncoming physician at 7 PM pending workup and CAT scan, planning to admit considering significant leukocytosis and suspicion of sepsis. Last updated by Carlita Trejo MD at 03/11/18 18:44 Medical Decision Making MDM Narrative Medical decision making narrative: UA indicates UTI and white count in this case underlying sepsis. IV Intermedics have been initiated in the ER. Case was signed out at [address] Ahumada who checked on the CAT scan and admitted the patient. CAT scan is showing some signs of UTI, neurogenic bladder, and prostatitis without signs of other acute intra-abdominal processes. Case was discussed with Dr. Lopez for admission. Medical Screen Exam Complete: Yes Emergency Medical Condition: Yes Differential Diagnosis Differential Diagnosis: UTI versus sepsis versus dehydration versus gastroenteritis Lab Data Result diagrams: 03/13/18 06:07 03/12/18 04:38 Lab Results 03/11/18 03/11/18 03/11/18 Range/Units 18:15 18:15 18:27 WBC 26.3 H (4.0-11.0) th/mm3 RBC 4.64 (4.50-5.90) mil/mm3 Hgb 14.6 (13.0-17.0) gm/dL Hct 42.3 (39.0-51.0) % MCV 91.0 (80.0-100.0) fL MCH 31.5 (27.0-34.0) pg MCHC 34.6 (32.0-36.0) % RDW 13.8 (11.6-17.2) % Plt Count 231 (150-450) th/mm3 MPV 8.2 (7.0-11.0) fL Prelim Diff (Auto) Slide review pending Neut % (Auto) 82.7 H (16.0-70.0) % Lymph % (Auto) 5.6 L (9.0-44.0) % [place] % (Auto) 11.6 H (0.0-8.0) % Eos % (Auto) 0.0 (0.0-4.0) % Baso % (Auto) 0.1 (0.0-2.0) % Neut # (Auto) 21.8 H (1.8-7.7) th/mm3 Lymph # (Auto) 1.5 (1.0-4.8) th/mm3 [place]ard # (Auto) 3.0 H (0.0-0.9) th/mm3 Eos # (Auto) 0.0 (0.0-0.4) th/mm3 Baso # (Auto) 0.0 (0.0-0.2) th/mm3 WBC Differential Manual diff final Seg Neuts % (Manual) 83 H (16-70) % Band Neuts % (Manual) 4 (0-6) % Lymphocytes % (Manual) 4 L (9-44) % Monocytes % (Manual) 5 (0-8) % Basophils % (Manual) (0-2) % Metamyelocytes % (Man) 4 H (0-1) % Abs Neuts (Manual) 23.9 H (1.8-7.7) th/mm3 Differential Comment . Toxic Vacuolation (None) Platelet Estimate Normal (Normal) Platelet Morphology Normal (Normal) RBC Morphology Normal (Normal) Sodium 137 (136-145) meq/L Potassium 3.7 (3.5-5.1) meq/L Chloride 101 (98-107) meq/L Carbon Dioxide 26.1 (21.0-32.0) meq/L Anion Gap 10 (5-15) meq/L BUN 9 (7-18) mg/dL Creatinine 0.84 (0.60-1.30) mg/dL Estimated GFR Greater than 89 (>89) mL/min Random Glucose 111 H (74-106) mg/dL Lactic Acid (0.4-2.0) mmol/L Calcium 8.5 (8.5-10.1) mg/dL Magnesium 1.8 (1.5-2.5) mg/dL Total Bilirubin 2.2 H (0.2-1.0) mg/dL AST 19 (15-37) U/L ALT 26 (12-78) U/L Alkaline Phosphatase 78 (45-117) U/L Total Protein 8.5 H (6.4-8.2) g/dL Albumin 3.7 (3.4-5.0) g/dL Lipase 53 L (73-393) U/L Urine Color Yellow (Yellw/Straw) Urine Clarity Hazy H (Clear) Urine pH 7.0 (5.0-8.5) Ur Specific [place] 1.006 (1.002-1.035) Urine Protein Negative (Neg-Trace) mg/dL Urine Glucose (UA) Negative (Negative) mg/dL Urine Ketones Negative (Negative) mg/dL Urine Occult Blood Moderate H (Negative) Urine Nitrate Negative (Negative) Urine Bilirubin Negative (Negative) Urine Urobilinogen 2.0 H (Less than 2) mg/dL Ur Leukocyte Esterase Large H (Negative) Urine RBC 1 (0-3) /hpf Urine WBC 113 H (0-5) /hpf Ur Squamous Epith Cells 1 (0-5) /hpf Urine Bacteria Occasional H (None) /hpf Micro UA Comment Cath-culture ind Ur Microscopic Review Not Reportable Urine Culture Comments Cath-cult indicated 03/11/18 03/12/18 03/12/18 Range/Units 19:15 04:38 04:38 WBC 21.8 H (4.0-11.0) th/mm3 RBC 4.02 L (4.50-5.90) mil/mm3 Hgb 12.9 L (13.0-17.0) gm/dL Hct 37.7 L (39.0-51.0) % MCV 93.9 (80.0-100.0) fL MCH 32.0 (27.0-34.0) pg MCHC 34.1 (32.0-36.0) % RDW 13.9 (11.6-17.2) % Plt Count 196 (150-450) th/mm3 MPV 8.7 (7.0-11.0) fL Prelim Diff (Auto) Neut % (Auto) 84.2 H (16.0-70.0) % Lymph % (Auto) 6.6 L (9.0-44.0) % Menard % (Auto) 8.9 H (0.0-8.0) % Eos % (Auto) 0.0 (0.0-4.0) % Baso % (Auto) 0.3 (0.0-2.0) % Neut # (Auto) 18.4 H (1.8-7.7) th/mm3 Lymph # (Auto) 1.4 (1.0-4.8) th/mm3 [place]ard # (Auto) 1.9 H (0.0-0.9) th/mm3 Eos # (Auto) 0.0 (0.0-0.4) th/mm3 Baso # (Auto) 0.1 (0.0-0.2) th/mm3 WBC Differential . Seg Neuts % (Manual) (16-70) % Band Neuts % (Manual) (0-6) % Lymphocytes % (Manual) (9-44) % Monocytes % (Manual) (0-8) % Basophils % (Manual) (0-2) % Metamyelocytes % (Man) (0-1) % Abs Neuts (Manual) (1.8-7.7) th/mm3 Differential Comment Auto diff final Toxic Vacuolation (None) Platelet Estimate (Normal) Platelet Morphology (Normal) RBC Morphology (Normal) Sodium 139 (136-145) meq/L Potassium 3.0 L (3.5-5.1) meq/L Chloride 107 (98-107) meq/L Carbon Dioxide 23.7 (21.0-32.0) meq/L Anion Gap 8 (5-15) meq/L BUN 7 (7-18) mg/dL Creatinine 0.66 (0.60-1.30) mg/dL Estimated GFR Greater than 89 (>89) mL/min Random Glucose 114 H (74-106) mg/dL Lactic Acid 1.3 (0.4-2.0) mmol/L Calcium 7.5 L D (8.5-10.1) mg/dL Magnesium (1.5-2.5) mg/dL Total Bilirubin (0.2-1.0) mg/dL AST (15-37) U/L ALT (12-78) U/L Alkaline Phosphatase (45-117) U/L Total Protein (6.4-8.2) g/dL Albumin (3.4-5.0) g/dL Lipase (73-393) U/L Urine Color (Yellw/Straw) Urine Clarity (Clear) Urine pH (5.0-8.5) Ur Specific [place] (1.002-1.035) Urine Protein (Neg-Trace) mg/dL Urine Glucose (UA) (Negative) mg/dL Urine Ketones (Negative) mg/dL Urine Occult Blood (Negative) Urine Nitrate (Negative) Urine Bilirubin (Negative) Urine Urobilinogen (Less than 2) mg/dL Ur Leukocyte Esterase (Negative) Urine RBC (0-3) /hpf Urine WBC (0-5) /hpf Ur Squamous Epith Cells (0-5) /hpf Urine Bacteria (None) /hpf Micro UA Comment Ur Microscopic Review Urine Culture Comments 03/13/18 Range/Units 06:07 WBC 9.9 (4.0-11.0) th/mm3 RBC 4.05 L (4.50-5.90) mil/mm3 Hgb 12.8 L (13.0-17.0) gm/dL Hct 37.8 L (39.0-51.0) % MCV 93.4 (80.0-100.0) fL MCH 31.5 (27.0-34.0) pg MCHC 33.7 (32.0-36.0) % RDW 13.9 (11.6-17.2) % Plt Count 194 (150-450) th/mm3 MPV 8.2 (7.0-11.0) fL Prelim Diff (Auto) Manual diff required Neut % (Auto) (16.0-70.0) % Lymph % (Auto) (9.0-44.0) % [place]ard % (Auto) (0.0-8.0) % Eos % (Auto) (0.0-4.0) % Baso % (Auto) (0.0-2.0) % Neut # (Auto) (1.8-7.7) th/mm3 Lymph # (Auto) (1.0-4.8) th/mm3 [place]ard # (Auto) (0.0-0.9) th/mm3 Eos # (Auto) (0.0-0.4) th/mm3 Baso # (Auto) (0.0-0.2) th/mm3 WBC Differential Manual diff final Seg Neuts % (Manual) 79 H (16-70) % Band Neuts % (Manual) 8 H (0-6) % Lymphocytes % (Manual) 10 (9-44) % Monocytes % (Manual) 2 (0-8) % Basophils % (Manual) 1 (0-2) % Metamyelocytes % (Man) (0-1) % Abs Neuts (Manual) 8.6 H (1.8-7.7) th/mm3 Differential Comment . Toxic Vacuolation Present H (None) Platelet Estimate Normal (Normal) Platelet Morphology Normal (Normal) RBC Morphology (Normal) Sodium (136-145) meq/L Potassium (3.5-5.1) meq/L Chloride (98-107) meq/L Carbon Dioxide (21.0-32.0) meq/L Anion Gap (5-15) meq/L BUN (7-18) mg/dL Creatinine (0.60-1.30) mg/dL Estimated GFR (>89) mL/min Random Glucose (74-106) mg/dL Lactic Acid (0.4-2.0) mmol/L Calcium (8.5-10.1) mg/dL Magnesium (1.5-2.5) mg/dL Total Bilirubin (0.2-1.0) mg/dL AST (15-37) U/L ALT (12-78) U/L Alkaline Phosphatase (45-117) U/L Total Protein (6.4-8.2) g/dL Albumin (3.4-5.0) g/dL Lipase (73-393) U/L Urine Color (Yellw/Straw) Urine Clarity (Clear) Urine pH (5.0-8.5) Ur Specific [place] (1.002-1.035) Urine Protein (Neg-Trace) mg/dL Urine Glucose (UA) (Negative) mg/dL Urine Ketones (Negative) mg/dL Urine Occult Blood (Negative) Urine Nitrate (Negative) Urine Bilirubin (Negative) Urine Urobilinogen (Less than 2) mg/dL Ur Leukocyte Esterase (Negative) Urine RBC (0-3) /hpf Urine WBC (0-5) /hpf Ur Squamous Epith Cells (0-5) /hpf Urine Bacteria (None) /hpf Micro UA Comment Ur Microscopic Review Urine Culture Comments Imaging Data Radiologist's impression: Abdomen/Pelvis CT 03/11/18 18:43 CONCLUSION: 1. Chronic appearing diffuse urinary bladder wall thickening most prominently near the trigone with associated moderate to severe bilateral hydroureteronephrosis most consistent with neurogenic bladder. 2. Interval increased prominence of the prostate gland with surrounding inflammatory change and dilatation of the prostatic urethra. Clinical correlation for prostatitis is recommended. 3. Normal-appearing appendix. Discharge Plan Discharge Disposition Patient Disposition: 30 Still Patient Discharge Condition Condition: Stable Discharge Order Discharge Orders: Discharge Order (Routine); Ordered 03/14/18 Ordered By: Va Mcmanus Discharge Details Anticipated Discharge Date: 03/14/18 Discharge Comment: Discharge at 3:00PM Diagnosis: Sepsis Physicians Team ED Provider: Indu Ahumada Primary Care Provider: UNKNOWN, Attending Provider: Va Mcmanus Other Providers: Pillo Bowens Status ED Status: Left Department Discharge Information Discharge Date/Time: 03/12/18 00:05
[2018-03-11 18:36] LABS: Baso % (Auto) 0.1 % (0.0-2.0); Hematocrit 42.3 % (39.0-51.0); Hemoglobin 14.6 gm/dL (13.0-17.0); Lymph # (Auto) 1.5 th/mm3 (1.0-4.8); Lymph % (Auto) 5.6 % (9.0-44.0); Mean Corpuscular HGB Conc 34.6 % (32.0-36.0); Mean Corpuscular Hemoglobin 31.5 pg (27.0-34.0); Mean Platelet Volume 8.2 fL (7.0-11.0); Mono % (Auto) 11.6 % (0.0-8.0); Neut # (Auto) 21.8 th/mm3 (1.8-7.7); Neut % (Auto) 82.7 % (16.0-70.0); Platelet Count 231 th/mm3 (150-450); Red Blood Count 4.64 mil/mm3 (4.50-5.90); Red Cell Distribution Width 13.8 % (11.6-17.2); White Blood Count 26.3 th/mm3 (4.0-11.0)
[2018-03-11] MEDS ORDERED: Piperacil/Tazo 3.375 GM Premix 50 ML IV.SIG ONE (18:43)
[2018-03-11] MEDS ORDERED: Sod Chloride 0.9% Inj 1,000 ML IV.SIG SCH ×2 (18:45→21:00)
[2018-03-11 19:00] LABS: Bacteria,Urine Occasional /hpf; Bilirubin,Urine Negative (Negative); Clarity,Urine Hazy (Clear); Color,Urine Yellow (Yellw/Straw); Glucose,Urine (UA) Negative (Negative); Leukocyte Esterase,Urine Large (Negative); Nitrite,Urine Negative (Negative); Specific Gravity,Urine 1.006 (1.002-1.035); Squamous Epithelial Cell,Urine 1 /hpf (0-5)
[2018-03-11 19:00] LABS: Albumin 3.7 g/dL (3.4-5.0); Anion Gap 10 meq/L (5-15); Aspartate Aminotransferase 19 U/L (15-37); Blood Urea Nitrogen 9 mg/dL (7-18); Calcium 8.5 mg/dL (8.5-10.1); Carbon Dioxide 26.1 meq/L (21.0-32.0); Chloride 101 meq/L (98-107); Glomerular Filtration Rate Greater Than 89 mL/min (>89); Glucose,Random 111 mg/dL (74-106); Lipase 53 U/L (73-393); Magnesium 1.8 mg/dL (1.5-2.5); Potassium 3.7 meq/L (3.5-5.1); Sodium 137 meq/L (136-145)
[2018-03-11 19:04] LABS: Alanine Aminotransferase 26 U/L (12-78); Alkaline Phosphatase 78 U/L (45-117); Lymphocytes 4 % (9-44); Metamyelocytes 4 % (0-1); Monocytes 5 % (0-8); Total Protein 8.5 g/dL (6.4-8.2)
[2018-03-11 19:06] LABS: Platelet Estimate Normal (Normal); Platelet Morphology Normal (Normal); RBC Morphology Normal (Normal)
--- NOTE | 2018-03-11 20:47 | CT ---
EXAM DATE: 03/11/2018 8:20 PM EST AGE/SEX: 27 years / Male INDICATIONS: Nausea and vomiting. Fever for two days. CLINICAL DATA: This is the patient's initial encounter. Patient reports that signs and symptoms have been present for 2 days and indicates a pain score of 4/10. MEDICAL/SURGICAL HISTORY: . Paraplegia. . Spine surgery. IVC filter. ORAL CONTRAST: No oral contrast ingested. RADIATION DOSE: 6.57 CTDI (mGy) [place] [facility] [place] 03/31/2016. . TECHNIQUE: Multiple contiguous axial images were obtained through the abdomen and pelvis following b olus infusion of 97 ml Omnipaque 350 (iohexol) nonionic water-soluble contrast as a single exam dos e. No oral contrast ingested. Using automated exposure control and adjustment of the mA and/or kV ac cording to patient size, radiation dose was kept as low as reasonably achievable to obtain optimal di agnostic quality images. DICOM format image data is available electronically for review and comparis on. FINDINGS: LOWER LUNGS: The visualized lower lungs are clear. LIVER: The liver has a homogeneous density without space-occupying lesion. There is no dilation of t he biliary tree. SPLEEN: Homogeneous density without enlargement. PANCREAS: Unremarkable without mass or calcification. KIDNEYS: Moderate to severe persistent bilateral hydroureteronephrosis. No radiopaque renal calculi. Kidneys are otherwise unremarkable . ADRENAL GLANDS: Unremarkable. AORTA: Jannet-aneurysmal. Redemonstration IVC filter in place with moderate caval penetration of the fi lter legs. BOWEL/MESENTERY: The bowel loops are grossly unremarkable. The cecum and sigmoid colon have a nick l configuration. Appendix is visualized and normal in appearance. There is no free fluid or drainable fluid collections. There is no free air or pneumatosis. ABDOMINAL WALL: Intact. RETROPERITONEUM: No evidence of adenopathy in the retrocrural, para-aortic, or deep pelvic regions. BLADDER: Redemonstration of diffuse circumferential bladder wall thickening most prominently near th e trigone. REPRODUCTIVE: Prostate gland is diffusely enlarged with surrounding inflammatory changes and dilatat ion of the prosthetic urethra. Overall, this appears slightly more prominent than on prior exam. BONY STRUCTURES: Partially imaged upper thoracic fixation hardware. Visualized osseous structures ar e intact. CONCLUSION: 1. Chronic appearing diffuse urinary bladder wall thickening most prominently near the trigone with associated moderate to severe bilateral hydroureteronephrosis most consistent with neurogenic bladder . 2. Interval increased prominence of the prostate gland with surrounding inflammatory change and dila tation of the prostatic urethra. Clinical correlation for prostatitis is recommended. 3. Normal-appearing appendix. Electronically signed by: Jesse Mahajan MD 03/11/2018 8:46 PM EST
[2018-03-11] MEDS ORDERED: Vancomycin Inj 1,000 MG in Sodium Chlor 0.9% Inj 250 ML IV.SIG ONE (20:50)
[2018-03-11] MEDS ORDERED: Bisacodyl 10 MG Supp RECTAL PRN (23:33)
--- NOTE | 2018-03-11 23:40 | P.HP ---
History of Present Illness Service: [facility] Primary Care Physician: UNKNOWN History of Present Illness: Plegia sustained in 2010 from a traumatic fall off a roof presents to the emergency department for evaluation of fever, emesis and dizziness that started yesterday. The patient self catheterizes at home and reports no changes in his urine. He endorses a headache. Denies chest pain or shortness of breath. No nausea/vomiting/diarrhea. Inpatient Certification: I certify that the inpatient services were ordered in accordance with Medicare regulations governing the order. This includes certification that hospital inpatient services are reasonable and necessary and in the case of services not specified as inpatient-only under 42 CFR 419.22(n), that they are appropriately provided as inpatient services in accordance to with the 2-midnight benchmark under 43 CFR 412.3(e) Estimated Total Length of Stay (Days): 2 Plans for Post Hospital Care: Not yet determined Review of Systems All other systems reviewed negative except as stated in HPI PMFSH - History History Provided By: Patient - Medical History Medical History: Medical History (Last Reviewed 03/11/18 @ 23:37 by Stacie Lopez MD) Paraplegia - Surgical History Surgical History: Surgical History (Last Reviewed 03/11/18 @ 23:37 by Stacie Lopez MD) History of back surgery - Family History Family History: Family History (Last Updated 03/11/18 @ 23:37 by Stacie Lopez MD) Other Diabetes mellitus - Tobacco History Second Hand Smoke Exposure: No Smoking Status: Never smoker - Alcohol History How Often Do You Have a Drink Containing Alcohol: 2 to 4 times a month - Substance Use History Substance History: No History of Abuse - Travel History Recent Travel in the [place] Within the Last 8 Weeks: No Recent Travel Out of the Country Within the Last 8 Weeks: No - Immunization History Tetanus Immunization: >5 Years Medications and Allergies Active Medications: Active Medications Sodium Chloride (Ns Flush) 2 ml IV.FLUSH PRN PRN PRN Reason: FLUSH AFTER USING IV ACCESS Last Admin: 03/11/18 18:19 Dose: 2 ml Allergies Allergy/AdvReac Type Severity Reaction Status Date / Time No Known Allergies Allergy Verified 03/11/18 17:37 Home Medications Medication Instructions Recorded Confirmed Type No Known Home Medications 03/11/18 03/11/18 History Exam Vital signs: Vital Signs 03/11/18 17:35 03/11/18 19:21 Temperature 100.1 F H 99.5 F Pulse Rate 118 H 104 H Respiratory Rate 20 18 Blood Pressure 114/58 L 101/55 L Pulse Oximetry 97 99 Intake & Output 03/11/18 03/11/18 03/12/18 06:59 18:59 06:59 Intake Total 2300 / 2300 Balance 2300 / 2300 Weight 68.039 kg Intake: IV 2300 / 2300 Zosyn 3.375 GM Premix 50 ML @ 50 / 50 100 mls/hr IV.SIG ONCE ONE Rx#: [id number] NS Inj 1,000 ML @ 1000 mls/hr 1999 / 1999 IV.SIG BOLUS [facility] Rx#:[id number] Vancomycin Inj 1,000 MG In NS 250 / 250 Inj 250 ML @ 250 mls/hr IV.SIG ONCE ONE Rx#:[id number] Narrative: Gen.: No acute distress Head: Normocephalic. Atraumatic. EENT: Pupils equal round and reactive to light. Nose without drainage. Airway intact. Throat without injection. Cardiovascular: Regular rate and rhythm. No murmurs, rubs or gallops. Respiratory: Lungs clear to auscultation bilaterally. No wheezes or rhonchi. Abdomen: Soft, nontender, nondistended. No peritoneal signs. Musculoskeletal: No gross deformities. No edema. Bilateral lower extremity muscle atrophy. Skin: No obvious rashes or erythema. Neuro: Cranial nerves II through XII grossly intact. Results - Labs CBC & Chem 7: 03/11/18 18:15 03/11/18 18:15 Labs: Laboratory Results - last 24 hr 03/11/18 03/11/18 03/11/18 18:15 18:15 18:27 WBC 26.3 H RBC 4.64 Hgb 14.6 Hct 42.3 MCV 91.0 MCH 31.5 MCHC 34.6 RDW 13.8 Plt Count 231 MPV 8.2 Prelim Diff (Auto) Slide review pending Neut % (Auto) 82.7 H Lymph % (Auto) 5.6 L [place] % (Auto) 11.6 H Eos % (Auto) 0.0 Baso % (Auto) 0.1 Neut # (Auto) 21.8 H Lymph # (Auto) 1.5 [place] # (Auto) 3.0 H Eos # (Auto) 0.0 Baso # (Auto) 0.0 WBC Differential Manual diff final Seg Neuts % (Manual) 83 H Band Neuts % (Manual) 4 Lymphocytes % (Manual) 4 L Monocytes % (Manual) 5 Metamyelocytes % (Man) 4 H Abs Neuts (Manual) 23.9 H Differential Comment . Platelet Estimate Normal Platelet Morphology Normal RBC Morphology Normal Sodium 137 Potassium 3.7 Chloride 101 Carbon Dioxide 26.1 Anion Gap 10 BUN 9 Creatinine 0.84 Estimated GFR Greater than 89 Random Glucose 111 H Lactic Acid Calcium 8.5 Magnesium 1.8 Total Bilirubin 2.2 H AST 19 ALT 26 Alkaline Phosphatase 78 Total Protein 8.5 H Albumin 3.7 Lipase 53 L Urine Color Yellow Urine Clarity Hazy H Urine pH 7.0 Ur Specific [place] 1.006 Urine Protein Negative Urine Glucose (UA) Negative Urine Ketones Negative Urine Occult Blood Moderate H Urine Nitrate Negative Urine Bilirubin Negative Urine Urobilinogen 2.0 H Ur Leukocyte Esterase Large H Urine RBC 1 Urine WBC 113 H Ur Squamous Epith Cells 1 Urine Bacteria Occasional H Micro UA Comment Cath-culture ind Ur Microscopic Review Not Reportable Urine Culture Comments Cath-cult indicated 03/11/18 19:15 WBC RBC Hgb Hct MCV MCH MCHC RDW Plt Count MPV Prelim Diff (Auto) Neut % (Auto) Lymph % (Auto) [place] % (Auto) Eos % (Auto) Baso % (Auto) Neut # (Auto) Lymph # (Auto) [place] # (Auto) Eos # (Auto) Baso # (Auto) WBC Differential Seg Neuts % (Manual) Band Neuts % (Manual) Lymphocytes % (Manual) Monocytes % (Manual) Metamyelocytes % (Man) Abs Neuts (Manual) Differential Comment Platelet Estimate Platelet Morphology RBC Morphology Sodium Potassium Chloride Carbon Dioxide Anion Gap BUN Creatinine Estimated GFR Random Glucose Lactic Acid 1.3 Calcium Magnesium Total Bilirubin AST ALT Alkaline Phosphatase Total Protein Albumin Lipase Urine Color Urine Clarity Urine pH Ur Specific [place] Urine Protein Urine Glucose (UA) Urine Ketones Urine Occult Blood Urine Nitrate Urine Bilirubin Urine Urobilinogen Ur Leukocyte Esterase Urine RBC Urine WBC Ur Squamous Epith Cells Urine Bacteria Micro UA Comment Ur Microscopic Review Urine Culture Comments - Imaging Impressions Abdomen/Pelvis CT 03/11/18 18:43 CONCLUSION: 1. Chronic appearing diffuse urinary bladder wall thickening most prominently near the trigone with associated moderate to severe bilateral hydroureteronephrosis most consistent with neurogenic bladder. 2. Interval increased prominence of the prostate gland with surrounding inflammatory change and dilatation of the prostatic urethra. Clinical correlation for prostatitis is recommended. 3. Normal-appearing appendix. Caprini VTE Risk Assessment Caprini VTE Risk Assessment: No/Low Risk (score <= 1) Caprini Risk Assessment Model: Point Value = 1 Point Value = 2 Point Value = 3 Point Value = 5 Age 41-60 Minor surgery BMI > 25 kg/m2 Swollen legs Varicose veins or History of unexplained or recurrent spontaneous Oral contraceptives or hormone replacement Sepsis (< 1 month) Serious lung disease, including pneumonia (< 1 month) Abnormal pulmonary function Acute myocardial infarction Congestive heart failure (< 1 month) History of inflammatory bowel disease Medical patient at bed rest Age 61-74 Arthroscopic surgery Major open surgery (> 45 min) Laparoscopic surgery (> 45 min) Malignancy Confined to bed (> 72 hours) Immobilizing plaster cast Central venous access Age >= 75 History of VTE Family history of VTE Factor V Leiden Prothrombin [id number] Lupus anticoagulant Anticardiolipin antibodies Elevated serum homocysteine Heparin-induced thrombocytopenia Other congenital or acquired thrombophilia Stroke (< 1 month) Elective arthroplasty Hip, pelvis, or leg fracture Acute spinal cord injury (< 1 month) Prophylaxis Regimen: Total Risk Factor Score Risk Level Prophylaxis Regimen 0-1 Low Early ambulation 2 Moderate Order ONE of the following: *Sequential Compression Device (SCD) *Heparin 5000 units SQ BID 3-4 Higher Order ONE of the following medications: *Heparin 5000 units SQ TID *Enoxaparin/Lovenox 40 mg SQ daily (WT < 150 kg, CrCl > 30 mL/min) *Enoxaparin/Lovenox 30 mg SQ daily (WT < 150 kg, CrCl > 10-29 mL/min) *Enoxaparin/Lovenox 30 mg SQ BID (WT < 150 kg, CrCl > 30 mL/min) AND/OR *Sequential Compression Device (SCD) 5 or more Highest Order ONE of the following medications: *Heparin 5000 units SQ TID (Preferred with Epidurals) *Enoxaparin/Lovenox 40 mg SQ daily (WT < 150 kg, CrCl > 30 mL/min) *Enoxaparin/Lovenox 30 mg SQ daily (WT < 150 kg, CrCl > 10-29 mL/min) *Enoxaparin/Lovenox 30 mg SQ BID (WT < 150 kg, CrCl > 30 mL/min) AND *Sequential Compression Device (SCD) Assessment and Plan - Plan Assessment/plan: 1. Prostatitis/UTI/sepsis Patient febrile with leukocytosis and tachycardia UA consistent with urinary tract infection CT of the abdomen/pelvis shows neurogenic bladder with prostatitis Rocephin 2 g every 24 hours Blood/urine cultures pending 2. 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 Neurogenic bladder Secondary to above Straight cath as needed FEN Cc/hour Regular diet Electrolytes: Monitor and replete as needed
[2018-03-12] MEDS: Sod Chloride 0.9% Inj 1,000 ML IV.CONT SCH ×3 (01:04→21:40)
[2018-03-12 06:17] LABS: Baso # (Auto) 0.1 th/mm3 (0.0-0.2); Baso % (Auto) 0.3 % (0.0-2.0); Hematocrit 37.7 % (39.0-51.0); Hemoglobin 12.9 gm/dL (13.0-17.0); Lymph # (Auto) 1.4 th/mm3 (1.0-4.8); Lymph % (Auto) 6.6 % (9.0-44.0); Mean Corpuscular HGB Conc 34.1 % (32.0-36.0); Mean Corpuscular Volume 93.9 fL (80.0-100.0); Mean Platelet Volume 8.7 fL (7.0-11.0); Mono # (Auto) 1.9 th/mm3 (0.0-0.9); Mono % (Auto) 8.9 % (0.0-8.0); Neut # (Auto) 18.4 th/mm3 (1.8-7.7); Neut % (Auto) 84.2 % (16.0-70.0); Platelet Count 196 th/mm3 (150-450); Red Blood Count 4.02 mil/mm3 (4.50-5.90); Red Cell Distribution Width 13.9 % (11.6-17.2); White Blood Count 21.8 th/mm3 (4.0-11.0)
[2018-03-12 06:41] LABS: Anion Gap 8 meq/L (5-15); Blood Urea Nitrogen 7 mg/dL (7-18); Calcium 7.5 mg/dL (8.5-10.1); Carbon Dioxide 23.7 meq/L (21.0-32.0); Chloride 107 meq/L (98-107); Glomerular Filtration Rate Greater Than 89 mL/min (>89); Glucose,Random 114 mg/dL (74-106); Sodium 139 meq/L (136-145)
[2018-03-12] MEDS: Senna/Docusate Sodium 8.6/50 MG Tablet PO SCH ×2 (10:30→21:41)
--- NOTE | 2018-03-12 10:48 | P.PN ---
Subjective Interval history: Follow-up for probable prostatitis in a patient with paraplegia and neurogenic bladder. Patient is currently doing well. He had a fever of 100.5 overnight. However since then he has been afebrile. Denies any chest pain, shortness of breath, fever or chills. No nausea vomiting or diarrhea. Physical Exam Vital signs: Vital Signs 03/11/18 17:35 03/11/18 19:21 03/12/18 00:00 Temperature 100.1 F H 99.5 F 100.5 F H Pulse Rate 118 H 104 H 96 H Respiratory Rate 20 18 20 Blood Pressure 114/58 L 101/55 L 103/57 L Pulse Oximetry 97 99 97 03/12/18 04:00 03/12/18 07:00 Temperature 98.3 F Pulse Rate 93 H Respiratory Rate 20 20 Blood Pressure 93/44 L Pulse Oximetry 95 Intake & Output 03/11/18 03/12/18 03/12/18 18:59 06:59 18:59 Intake Total 2995 / 2995 Balance 2995 / 2995 Weight 68.039 kg 72.6 kg Intake: IV 2400 / 2400 Zosyn 3.375 GM Premix 50 ML @ 50 / 50 100 mls/hr IV.SIG ONCE ONE Rx#: [id number] NS Inj 1,000 ML @ 1000 mls/hr 1999 / 1999 IV.SIG BOLUS [facility] Rx#:[id number] Vancomycin Inj 1,000 MG In NS 250 / 250 Inj 250 ML @ 250 mls/hr IV.SIG ONCE ONE Rx#:[id number] Rocephin Inj 2,000 MG In NS Inj 100 / 100 100 ML @ 200 mls/hr IV.SIG Q24H [facility] Rx#:[id number] Oral 595 / 595 Other: # Voids 2 Weight On Admission 72.6 kg Narrative: Gen.: Alert, no acute distress Head: Normocephalic. Atraumatic. EENT: Pupils equal round and reactive to light. Nose without drainage. Airway intact. Throat without injection. Cardiovascular: Regular rate and rhythm. No murmurs, rubs or gallops. Respiratory: Lungs clear to auscultation bilaterally. No wheezes or rhonchi. Abdomen: Soft, nontender, nondistended. No peritoneal signs. Musculoskeletal: No gross deformities. No edema. Bilateral lower extremity muscle atrophy. Paraplegic Skin: No obvious rashes or erythema. Neuro: Cranial nerves II through XII grossly intact. Results - Labs CBC & Chem 7: 03/12/18 04:38 03/12/18 04:38 Laboratory Results - last 24 hr 03/11/18 03/11/18 03/11/18 18:15 18:15 18:27 WBC 26.3 H RBC 4.64 Hgb 14.6 Hct 42.3 MCV 91.0 MCH 31.5 MCHC 34.6 RDW 13.8 Plt Count 231 MPV 8.2 Prelim Diff (Auto) Slide review pending Neut % (Auto) 82.7 H Lymph % (Auto) 5.6 L [place] % (Auto) 11.6 H Eos % (Auto) 0.0 Baso % (Auto) 0.1 Neut # (Auto) 21.8 H Lymph # (Auto) 1.5 [place] # (Auto) 3.0 H Eos # (Auto) 0.0 Baso # (Auto) 0.0 WBC Differential Manual diff final Seg Neuts % (Manual) 83 H Band Neuts % (Manual) 4 Lymphocytes % (Manual) 4 L Monocytes % (Manual) 5 Metamyelocytes % (Man) 4 H Abs Neuts (Manual) 23.9 H Differential Comment . Platelet Estimate Normal Platelet Morphology Normal RBC Morphology Normal Sodium 137 Potassium 3.7 Chloride 101 Carbon Dioxide 26.1 Anion Gap 10 BUN 9 Creatinine 0.84 Estimated GFR Greater than 89 Random Glucose 111 H Lactic Acid Calcium 8.5 Magnesium 1.8 Total Bilirubin 2.2 H AST 19 ALT 26 Alkaline Phosphatase 78 Total Protein 8.5 H Albumin 3.7 Lipase 53 L Urine Color Yellow Urine Clarity Hazy H Urine pH 7.0 Ur Specific [place] 1.006 Urine Protein Negative Urine Glucose (UA) Negative Urine Ketones Negative Urine Occult Blood Moderate H Urine Nitrate Negative Urine Bilirubin Negative Urine Urobilinogen 2.0 H Ur Leukocyte Esterase Large H Urine RBC 1 Urine WBC 113 H Ur Squamous Epith Cells 1 Urine Bacteria Occasional H Micro UA Comment Cath-culture ind Ur Microscopic Review Not Reportable Urine Culture Comments Cath-cult indicated 03/11/18 03/12/18 03/12/18 19:15 04:38 04:38 WBC 21.8 H RBC 4.02 L Hgb 12.9 L Hct 37.7 L MCV 93.9 MCH 32.0 MCHC 34.1 RDW 13.9 Plt Count 196 MPV 8.7 Prelim Diff (Auto) Neut % (Auto) 84.2 H Lymph % (Auto) 6.6 L [place] % (Auto) 8.9 H Eos % (Auto) 0.0 Baso % (Auto) 0.3 Neut # (Auto) 18.4 H Lymph # (Auto) 1.4 [place] # (Auto) 1.9 H Eos # (Auto) 0.0 Baso # (Auto) 0.1 WBC Differential . Seg Neuts % (Manual) Band Neuts % (Manual) Lymphocytes % (Manual) Monocytes % (Manual) Metamyelocytes % (Man) Abs Neuts (Manual) Differential Comment Auto diff final Platelet Estimate Platelet Morphology RBC Morphology Sodium 139 Potassium 3.0 L Chloride 107 Carbon Dioxide 23.7 Anion Gap 8 BUN 7 Creatinine 0.66 Estimated GFR Greater than 89 Random Glucose 114 H Lactic Acid 1.3 Calcium 7.5 L D Magnesium Total Bilirubin AST ALT Alkaline Phosphatase Total Protein Albumin Lipase Urine Color Urine Clarity Urine pH Ur Specific [place] Urine Protein Urine Glucose (UA) Urine Ketones Urine Occult Blood Urine Nitrate Urine Bilirubin Urine Urobilinogen Ur Leukocyte Esterase Urine RBC Urine WBC Ur Squamous Epith Cells Urine Bacteria Micro UA Comment Ur Microscopic Review Urine Culture Comments - Imaging Impressions Abdomen/Pelvis CT 03/11/18 18:43 CONCLUSION: 1. Chronic appearing diffuse urinary bladder wall thickening most prominently near the trigone with associated moderate to severe bilateral hydroureteronephrosis most consistent with neurogenic bladder. 2. Interval increased prominence of the prostate gland with surrounding inflammatory change and dilatation of the prostatic urethra. Clinical correlation for prostatitis is recommended. 3. Normal-appearing appendix. - Procedures None. Assessment and Plan - Plan On 03/11/2018, Mr. Robertson, a 27-year-old paraplegic male who presented to the emergency department due to fever, nausea vomiting and dizziness. CT abdomen pelvis indicated possible prostatitis. Sepsis (heart rate over 90, WBC count over 20 6K, suspected infection urinary tract/prostatitis) Acute prostatitis Patient is currently on ceftriaxone 2 g every 24 hours. Follow urine culture results. We will likely switch him to Bactrim or Levaquin/ciprofloxacin Would like to see patient afebrile for 24 hours before discharge. Paraplegia Neurogenic bladder Secondary to trauma in 2010. Full code. Lovenox.
[2018-03-12] MEDS: Enoxaparin Inj 40 MG/0.4 ML Syringe SQ SCH (14:13)
[2018-03-13] MEDS: Acetaminophen 325 MG Tablet PO PRN ×2 (01:21→17:16)
[2018-03-13 06:23] LABS: Hematocrit 37.8 % (39.0-51.0); Hemoglobin 12.8 gm/dL (13.0-17.0); Mean Corpuscular HGB Conc 33.7 % (32.0-36.0); Mean Corpuscular Hemoglobin 31.5 pg (27.0-34.0); Mean Corpuscular Volume 93.4 fL (80.0-100.0); Mean Platelet Volume 8.2 fL (7.0-11.0); Platelet Count 194 th/mm3 (150-450); Red Blood Count 4.05 mil/mm3 (4.50-5.90); Red Cell Distribution Width 13.9 % (11.6-17.2); White Blood Count 9.9 th/mm3 (4.0-11.0)
[2018-03-13] MEDS: Sod Chloride 0.9% Inj 1,000 ML IV.CONT SCH ×3 (06:34→17:17)
[2018-03-13 09:04] LABS: Lymphocytes 10 % (9-44); Monocytes 2 % (0-8); Platelet Estimate Normal (Normal); Platelet Morphology Normal (Normal); Toxic Vacuolation Present
[2018-03-13] MEDS: Enoxaparin Inj 40 MG/0.4 ML Syringe SQ SCH (09:16)
[2018-03-13] MEDS: Senna/Docusate Sodium 8.6/50 MG Tablet PO SCH ×2 (09:16→21:09)
--- NOTE | 2018-03-13 14:44 | MB ---
cc: Pillo Bowens MD DATE: 03/13/2018 REQUESTING PHYSICIAN: Va Mcmanus MD REASON FOR CONSULTATION: A 27-year-old paraplegic with neurogenic bladder, came in with fever, nausea and vomiting. CT scan shows possible prostatitis. Blood cultures showing gram-negative rods. HISTORY OF PRESENT ILLNESS: This is a 27-year-old male who has neurogenic bladder. The patient is paraplegic from a fall in 2010. He presented to the emergency department because of sudden onset of fever, nausea and vomiting. His girlfriend is at bedside. He reports that he became sick very suddenly without any warning signs. The patient does self catheterization. In the Emergency Department, his temperature was 100.1. It is reported in the emergency department that he had several days of headache, nausea and vomiting and fevers. His white count was elevated at 21.8 and the urinalysis showed increased white cells. Blood cultures were taken and the blood culture preliminary has gram-negative rods in 1 bottle of 4. Urine culture has less than 10,000 colonies of gram-negative rods. White count has improved to 9.9 today. He had a temperature of 100.1 earlier today. The blood pressure was 93/44 early yesterday morning, but the blood pressure is more stable currently. CT scan of the abdomen and pelvis was performed and it showed increased prominence of the prostate gland with surrounding inflammatory change and dilatation of the prostatic urethra. Clinical correlation for prostatitis is recommended. Chronic appearing diffuse urinary bladder wall thickening is also noted. The patient is currently upright in bed, eating. He is awake and alert. He feels better. He has no sensation below the chest. PAST MEDICAL HISTORY: Paraplegia, neurogenic bladder, history of back surgery. ALLERGIES: NO KNOWN DRUG ALLERGIES. MEDICATIONS: 1. Cefepime. 2. Dulcolax. 3. Mindy-Colace. SOCIAL HISTORY: No tobacco. Social alcohol use. No illicit drugs. FAMILY HISTORY: Noncontributory. REVIEW OF SYSTEMS: Pertinents mentioned above in history of present illness. PHYSICAL EXAMINATION: GENERAL: This is a well-developed male who is in no acute distress. He is awake and alert and oriented. VITAL SIGNS: Temperature 97.7, BP 110/50, respirations 14, heart rate 95. HEENT: Atraumatic. Extraocular muscles are grossly intact. Pupils reactive to light. No icterus. Oropharynx: Moist mucosa. No visible lesions. NECK: Supple without adenopathy. LUNGS: Clear. HEART: Regular S1, S2, without murmurs. ABDOMEN: Bowel sounds present, soft. RECTAL: Not performed. EXTREMITIES: No clubbing, cyanosis or edema. SKIN: No rash. NEUROLOGIC: The patient is paraplegic with no movement or sensation below the waist. SKIN: No rash. PSYCHIATRIC: The patient is calm and cooperative. LABORATORY DATA: WBC 9.9, platelets 194, hemoglobin 12.8. Creatinine 0.66. Estimated GFR greater than 89. IMPRESSION: 1. Gram-negative sepsis arising from urinary tract infection. 2. Paraplegia. 3. Urinary tract infection. The urine culture is showing less than 10,000 colonies of gram-negative rods. RECOMMENDATIONS: 1. Monitor the blood culture for identity and sensitivity of the gram-negative matthew. 2. Continue cefepime. 3. Monitor the temperature. 4. Monitor clinical status. Thank you for this consultation. The patient has prostatitis suggested by the CT scan and therefore he may just require a longer course of antibiotic treatment, since he is paraplegic. He may require a longer course of antibiotic treatment with suspicion of prostatitis. Where we would typically give a 10-14 day course of antibiotics, he may require continued antibiotics for 21 days, or probably even a longer course of treatment. We may want to get urology opinion as well. MD JUDITH Juan/elroy , 11:41 AM , 11:52 AM
--- NOTE | 2018-03-13 16:30 | P.PN ---
Subjective Interval history: Follow-up for probable prostatitis in a patient with paraplegia and neurogenic bladder and bacteremia. Patient is doing well. He had fever today too. Physical Exam Vital signs: Vital Signs 03/12/18 20:00 03/13/18 00:00 03/13/18 04:00 Temperature 99.4 F 101.2 F H 98.3 F Pulse Rate 97 H 95 H 89 Respiratory Rate 20 20 20 Blood Pressure 113/56 L 97/50 L 113/54 L Pulse Oximetry 98 98 97 03/13/18 08:00 03/13/18 12:00 Temperature 97.7 F 98.1 F Pulse Rate 95 H 100 H Respiratory Rate 14 13 Blood Pressure 110/50 L 109/53 L Pulse Oximetry 96 97 Intake & Output 03/12/18 03/13/18 03/13/18 18:59 06:59 18:59 Intake Total 480 / 480 2580 / 2580 100 / 100 Balance 480 / 480 2580 / 2580 100 / 100 Weight 72.4 kg Intake: IV 2100 / 2100 100 / 100 NS Inj 1,000 ML @ 100 mls/hr IV 1999 / 1999 .CONT .Q10H [facility] Rx#:[id number] Maxipime Inj 2,000 MG In NS Inj 100 / 100 100 ML @ 200 mls/hr IV.SIG Q8H [facility] Rx#:[id number] Rocephin Inj 2,000 MG In NS Inj 100 / 100 100 ML @ 200 mls/hr IV.SIG Q24H [facility] Rx#:[id number] Oral 480 / 480 480 / 480 Other: # Voids 3 2 Narrative: Gen.: Alert, no acute distress Head: Normocephalic. Atraumatic. EENT: Pupils equal round and reactive to light. Nose without drainage. Airway intact. Throat without injection. Cardiovascular: Regular rate and rhythm. No murmurs, rubs or gallops. Respiratory: Lungs clear to auscultation bilaterally. No wheezes or rhonchi. Abdomen: Soft, nontender, nondistended. No peritoneal signs. Musculoskeletal: No gross deformities. No edema. Bilateral lower extremity muscle atrophy. Paraplegic Skin: No obvious rashes or erythema. Neuro: Cranial nerves II through XII grossly intact. Results - Labs CBC & Chem 7: 03/13/18 06:07 03/12/18 04:38 Laboratory Results - last 24 hr 03/13/18 06:07 WBC 9.9 RBC 4.05 L Hgb 12.8 L Hct 37.8 L MCV 93.4 MCH 31.5 MCHC 33.7 RDW 13.9 Plt Count 194 MPV 8.2 Prelim Diff (Auto) Manual diff required WBC Differential Manual diff final Seg Neuts % (Manual) 79 H Band Neuts % (Manual) 8 H Lymphocytes % (Manual) 10 Monocytes % (Manual) 2 Basophils % (Manual) 1 Abs Neuts (Manual) 8.6 H Differential Comment . Toxic Vacuolation Present H Platelet Estimate Normal Platelet Morphology Normal Microbiology 03/11/18 19:15 Blood - Peripheral Aerobic Blood Culture - Preliminary No growth in 2 days 03/11/18 19:15 Blood - Peripheral Anaerobic Blood Culture - Preliminary Klebsiella pneumoniae 03/11/18 19:10 Blood - Peripheral Aerobic Blood Culture - Preliminary No growth in 2 days 03/11/18 19:10 Blood - Peripheral Anaerobic Blood Culture - Preliminary No growth in 2 days 03/11/18 18:27 Clean Catch Urine Urine Culture - Final <10,000 cfu/mL gram negative rods - no further workup - Procedures None. Assessment and Plan - Plan On 03/11/2018, Mr. Robertson, a 27-year-old paraplegic male who presented to the emergency department due to fever, nausea vomiting and dizziness. CT abdomen pelvis indicated possible prostatitis. Sepsis (heart rate over 90, WBC count over 20 6K, suspected infection urinary tract/prostatitis) Acute prostatitis GNR bacteremia Patient is currently on ceftriaxone 2 g every 24 hours. Will switch to Cefepime 2g Q8hrs. -Consult ID. Urine cx no growth so far. Blood cx ==> GNR. Paraplegia Neurogenic bladder Secondary to trauma in 2010. Full code. Lovenox.
[2018-03-14] MEDS: Sod Chloride 0.9% Inj 1,000 ML IV.CONT SCH ×2 (04:37→10:52)
[2018-03-14] MEDS: Enoxaparin Inj 40 MG/0.4 ML Syringe SQ SCH (08:05)
[2018-03-14] MEDS: Senna/Docusate Sodium 8.6/50 MG Tablet PO SCH (08:05)
[2018-03-14 08:38] VITALS: RESP 18
[2018-03-14 12:32] VITALS: BP 106/59; PULSE 72; TEMP 98.7; O2SAT 98
--- NOTE | 2018-03-14 14:39 | P.DS ---
Date of admission: 03/11/18 21:22 Primary care physician: UNKNOWN Attending physician on discharge: Va Mcmanus Anticipated date of discharge: 03/14/18 Brief History from admission: Plegia sustained in 2010 from a traumatic fall off a roof presents to the emergency department for evaluation of fever, emesis and dizziness that started yesterday. The patient self catheterizes at home and reports no changes in his urine. He endorses a headache. Denies chest pain or shortness of breath. No nausea/vomiting/diarrhea. Patient update on day of discharge: Patient is doing well. No fever, chills. Tolerating diet well. DS: Medications - Discharge Medications Prescriptions: ciprofloxacin HCl [Cipro] 500 mg PO BID 42 Days #84 tab DS: Summary Hospital Course: On 03/11/2018, Mr. Robertson, a 27-year-old paraplegic male who presented to the emergency department due to fever, nausea vomiting and dizziness. CT abdomen pelvis indicated possible prostatitis. Sepsis (heart rate over 90, WBC count over 20 6K, suspected infection urinary tract/prostatitis) Acute prostatitis GNR bacteremia - Culture grew Klebsiella. NOT ESBL. Discussed with Microbiology. Currently on Cefepime 2g Q8hrs. -ID consulted. Discussed with ID today - we will send patient home on Cipro 500mg BID X 6 weeks. Urine cx no growth so far. Blood cx ==> GNR. Paraplegia Neurogenic bladder Secondary to trauma in 2010. Full code. Lovenox while in the hospital. Discussed with patient's girlfriend. I encouraged them to go to Urology in the outpatient setting. A [facility] maybe an option to get reduced fee referral to Urology. Patient's girlfriend says she will look into this possibility in [facility] as they live in [place]. Patient will be discharged home today on Cipro. - Time Spent with Patient Total time spent providing and/or coordinating discharge services: Less than 30 minutes - Quality: VTE Deep Vein Thrombosis/Pulmonary Embolism Present on Admission: No Exam Vital signs: Vital Signs 03/13/18 16:00 03/13/18 20:00 03/14/18 00:00 Temperature 101.0 F H 98.2 F 98.2 F Pulse Rate 91 H 79 101 H Respiratory Rate 14 18 18 Blood Pressure 118/55 L 118/57 L 104/58 L Pulse Oximetry 97 98 97 03/14/18 04:00 03/14/18 08:00 03/14/18 12:00 Temperature 97.7 F 98 F 98.7 F Pulse Rate 82 75 72 Respiratory Rate 20 18 18 Blood Pressure 119/62 107/55 L 106/59 L Pulse Oximetry 97 95 98 Intake & Output 03/13/18 03/14/18 03/14/18 18:59 06:59 18:59 Intake Total 2160 / 2160 1580 / 1580 1100 / 1100 Balance 2160 / 2160 1580 / 1580 1100 / 1100 Intake: IV 1200 / 1200 1100 / 1100 1100 / 1100 NS Inj 1,000 ML @ 100 mls/hr IV 1000 / 1000 1000 / 1000 1000 / 1000 .CONT .Q10H [facility] Rx#:[id number] Maxipime Inj 2,000 MG In NS Inj 200 / 200 100 / 100 100 / 100 100 ML @ 200 mls/hr IV.SIG Q8H [facility] Rx#:[id number] Oral 960 / 960 480 / 480 Other: # Voids 3 2 Narrative: Gen.: Alert, no acute distress Head: Normocephalic. Atraumatic. EENT: Pupils equal round and reactive to light. Nose without drainage. Airway intact. Throat without injection. Cardiovascular: Regular rate and rhythm. No murmurs, rubs or gallops. Respiratory: Lungs clear to auscultation bilaterally. No wheezes or rhonchi. Abdomen: Soft, nontender, nondistended. No peritoneal signs. Musculoskeletal: No gross deformities. No edema. Bilateral lower extremity muscle atrophy. Paraplegic Skin: No obvious rashes or erythema. Neuro: Cranial nerves II through XII grossly intact. Results Procedures completed during hospitalization: None. Labs on day of discharge: Preliminary micro results at discharge 03/11/18 19:15 Aerobic Blood Culture - Preliminary Blood - Peripheral No growth in 3 days Anaerobic Blood Culture - Preliminary Klebsiella pneumoniae 03/11/18 19:10 Aerobic Blood Culture - Preliminary Blood - Peripheral No growth in 3 days Anaerobic Blood Culture - Preliminary No growth in 3 days - Impressions ITS Impressions Abdomen/Pelvis CT 03/11/18 18:43 CONCLUSION: 1. Chronic appearing diffuse urinary bladder wall thickening most prominently near the trigone with associated moderate to severe bilateral hydroureteronephrosis most consistent with neurogenic bladder. 2. Interval increased prominence of the prostate gland with surrounding inflammatory change and dilatation of the prostatic urethra. Clinical correlation for prostatitis is recommended. 3. Normal-appearing appendix. Discharge Plan - Discharge Disposition Patient Disposition: 01 Discharge Home - Discharge Condition Condition: Stable - Discharge Order Discharge Orders: Discharge Order (Routine); Ordered 03/14/18 Ordered By: Va Mcmanus - Discharge Details Anticipated Discharge Date: 03/14/18 Discharge Comment: Discharge at 3:00PM - Physicians Team Primary Care Provider: UNKNOWN, Attending Provider: Va Mcmanus Other Providers: Pillo Bowens MD
== END 2018-03-14 16:00 | disposition home or self-care (01) ==
LOC: NEPC 17:20 → NEDA 21:22 → N04 23:55
PROVIDERS: ADMIT Hospitalist; ATTEND Hospitalist